=== PATIENT | female | born 1955 | race African-American/Black ===

== ENCOUNTER 2016-12-02 13:03 | Inpatient (IN) | payer MEDICARE, MEDICAID ==
[~2016-12-02] VITALS: Ht 170.2 cm; Wt 116.5 kg
[2016-12-02] MEDS ORDERED: RISP.5 PO (13:32)
[2016-12-02] MEDS ORDERED: QUET25TA PO (13:32)
[2016-12-02 14:07] LABS: BASOPHILS # (AUTO) 0.15 K/uL (0.00-0.20); BASOPHILS % (AUTO) 1.9 % (0.0-2.0); EOSINOPHILS # (AUTO) 0.69 K/uL (0.00-0.70); EOSINOPHILS % (AUTO) 8.69 % (1.0-6.0); HEMATOCRIT 41.9 % (36-46); HEMOGLOBIN 13.6 g/dL (12.0-16.0); LYMPHOCYTES # (AUTO) 3.1 K/uL (1.0-4.8); LYMPHOCYTES % (AUTO) 39.3 % (22.0-44.0); MEAN CORPUSCULAR HGB CONC 32.5 G/dL (31.0-37.0); MEAN CORPUSCULAR VOLUME 83 fL (80-100); MONOCYTES # (AUTO) 0.6 K/uL (0.1-1.0); MONOCYTES % (AUTO) 8.1 % (2.0-9.0); NEUTROPHILS # (AUTO) 3.3 K/uL (1.8-7.7); PLATELET COUNT (AUTO) 345 K/uL (150-450); RED BLOOD CELL COUNT(AUTO) 5.05 MIL/uL (4.00-5.20); RED CELL DISTRIBUTION WIDTH 15.6 % (11.5-14.5)
[2016-12-02 14:23] LABS: ANION GAP 8 mmol/L (8-16); CARBON DIOXIDE 29 mmol/L (22-29); CHLORIDE 104 mmol/L (98-107); CREATININE 0.91 mg/dL (0.60-1.30); GLOMERULAR FILTR. RATE CALC > 60 mL/min (>60); POTASSIUM 3.5 mmol/L (3.5-5.1); SODIUM SERUM 141 mmol/L (136-145); UREA NITROGEN, BLOOD 10 mg/dL (7-18)
[2016-12-02 14:29] LABS: ALANINE AMINOTRANSFERASE 30 U/L (12-78); ALBUMIN 3.3 g/dL (3.4-5.0); ASPARTATE AMINOTRANSFERASE 19 U/L (15-37); BILIRUBIN,TOTAL 0.4 mg/dL (0.1-1.0); TOTAL PROTEIN, SERUM 7.7 g/dL (6.4-8.2)
[2016-12-02] MEDS ORDERED: HALOPERIDOL 5 MG TABLET PO ONE (15:15)
[2016-12-02] MEDS ORDERED: HALOPERIDOL 5 MG TABLET PO PRN (18:00)
[2016-12-02 19:52] VITALS: BP 147/82
[2016-12-02] MEDS ORDERED: INFLUENZA VIRUS VACCINE QVS 2016-17 (3YR+)/PF 60 MCG/0.5 ML SYRINGE IM ONE (20:15)
[2016-12-03 04:51] VITALS: BP 148/87
[2016-12-03 08:00] VITALS: BP 151/91
[2016-12-03 16:30] VITALS: BP 134/83
[2016-12-03] MEDS ORDERED: ACETAMINOPHEN 325 MG TABLET PO PRN (23:15)
[2016-12-04 07:08] LABS: HEMOGLOBIN A1C 6.2 % (4.5-6.2)
[2016-12-04 07:29] LABS: CHOL/HDL RATIO 4.5 (3.9-5.7); THYROID STIMULATING HORMONE 0.94 uIU/mL (0.36-3.74)
[2016-12-04 08:00] VITALS: BP 140/71
[2016-12-04 16:27] VITALS: BP 159/85
[2016-12-04] MEDS: IBUPROFEN 400 MG TABLET PO PRN (16:27)
[2016-12-04] MEDS: LORazepam 2 MG TABLET PO PRN (18:36)
[2016-12-04] MEDS: ZOLPIDEM TARTRATE 10 MG TABLET PO PRN (20:37)
[2016-12-05 02:00] VITALS: BP 140/95
[2016-12-05 08:00] VITALS: BP 119/82
[2016-12-05] MEDS ORDERED: BENZOCAINE/MENTHOL LOZENGE [8 LOZENGES/PACKET] PO PRN (10:30)
[2016-12-05] MEDS ORDERED: GuaiFENesin/D-METHORPHAN [SUGAR-FREE] 200-20MG/10 ML SYRUP UDCUP PO SCH (12:00)
[2016-12-05 16:39] VITALS: BP 134/84
[2016-12-05] MEDS: GuaiFENesin/D-METHORPHAN [SUGAR-FREE] 200-20MG/10 ML SYRUP UDCUP PO PRN (20:28)
[2016-12-06 01:00] VITALS: BP 145/78
[2016-12-06] MEDS: GuaiFENesin/D-METHORPHAN [SUGAR-FREE] 200-20MG/10 ML SYRUP UDCUP PO PRN ×3 (03:00→19:17)
[2016-12-06 08:04] VITALS: BP 146/78
[2016-12-06] MEDS: CITALOPRAM HYDROBROMIDE 20 MG TABLET PO SCH (08:26)
[2016-12-06 16:40] VITALS: BP 113/73
[2016-12-07] MEDS: GuaiFENesin/D-METHORPHAN [SUGAR-FREE] 200-20MG/10 ML SYRUP UDCUP PO PRN ×2 (04:39→10:53)
[2016-12-07 08:05] VITALS: BP 127/79
[2016-12-07] MEDS: CITALOPRAM HYDROBROMIDE 20 MG TABLET PO SCH (09:50)
[2016-12-07 17:05] VITALS: BP 131/78
[2016-12-07] MEDS: ZOLPIDEM TARTRATE 10 MG TABLET PO PRN (21:24)
[2016-12-08] MEDS: GuaiFENesin/D-METHORPHAN [SUGAR-FREE] 200-20MG/10 ML SYRUP UDCUP PO PRN ×2 (05:50→22:13)
[2016-12-08 05:53] VITALS: BP 144/75
[2016-12-08 08:00] VITALS: BP 133/80
[2016-12-08] MEDS: CITALOPRAM HYDROBROMIDE 20 MG TABLET PO SCH (08:07)
[2016-12-08 17:52] VITALS: BP 130/90
[2016-12-08] MEDS: ZOLPIDEM TARTRATE 10 MG TABLET PO PRN (22:10)
[2016-12-09 02:31] VITALS: BP 143/26
[2016-12-09] MEDS: CITALOPRAM HYDROBROMIDE 20 MG TABLET PO SCH (08:02)
[2016-12-09] MEDS: GuaiFENesin/D-METHORPHAN [SUGAR-FREE] 200-20MG/10 ML SYRUP UDCUP PO PRN (09:03)
[2016-12-09 09:35] VITALS: BP 131/63
[2016-12-09] MEDS ORDERED: ALBUTEROL SULFATE HFA 90 MCG/PUFF 8 GM INHALER IH PRN (13:30)
[2016-12-09 19:59] VITALS: BP 131/77
[2016-12-09] MEDS: LORazepam 2 MG TABLET PO PRN (20:07)
[2016-12-10 01:42] VITALS: BP 141/71
[2016-12-10] MEDS: IBUPROFEN 400 MG TABLET PO PRN (04:24)
[2016-12-10] MEDS: CITALOPRAM HYDROBROMIDE 20 MG TABLET PO SCH (09:21)
[2016-12-10 09:32] VITALS: BP 144/70
[2016-12-10] MEDS ORDERED: CITA20TA9 PO (12:09)
[2016-12-10 16:15] VITALS: BP 150/90
[2016-12-10 16:25] VITALS: BP 149/87
== END 2016-12-10 17:05 | disposition home or self-care (01) | DRG 885 ==
LOC: EMS 13:06 → 3EX 18:20
PROVIDERS: ADMIT Psychiatry & Neurology Psychiatry; ATTEND Psychiatry & Neurology Psychiatry
DX: F33.2 Major depressive disorder, recurrent severe without psychotic features (principal); R45.851 Suicidal ideations; F15.90 Other stimulant use, unspecified, uncomplicated; F17.210 Nicotine dependence, cigarettes, uncomplicated; E83.51 Hypocalcemia; E78.5 Hyperlipidemia, unspecified; F20.9 Schizophrenia, unspecified; F22 Delusional disorders; R73.9 Hyperglycemia, unspecified; F19.10 Other psychoactive substance abuse, uncomplicated; Z28.21 Immunization not carried out because of patient refusal; Z59.0 Homelessness; Z88.0 Allergy status to penicillin
CPT/HCPCS: 83036; 84443; 99285; G0480; J3535

== ENCOUNTER 2016-12-21 18:30 | Inpatient (IN) | payer MEDICARE, MEDICAID ==
[~2016-12-21] VITALS: Ht 170.2 cm; Wt 115.7 kg
[~2016-12-21 18:30] MED LIST: CITA20TA9 PO
[2016-12-21 20:07] VITALS: BP 156/92
[2016-12-21 20:53] VITALS: BP 152/81
[2016-12-21] MEDS: LORazepam 2 MG TABLET PO PRN (21:00)
[2016-12-21 22:50] VITALS: BP 143/78
[2016-12-22 00:30] VITALS: BP 138/71
[2016-12-22 08:38] VITALS: BP 155/86
[2016-12-22 09:35] LABS: BASOPHILS % (AUTO) 0.6 % (0.0-2.0); HEMATOCRIT 39.4 % (36-46); HEMOGLOBIN 12.5 g/dL (12.0-16.0); LYMPHOCYTES # (AUTO) 3.9 K/uL (1.0-4.8); LYMPHOCYTES % (AUTO) 46.4 % (22.0-44.0); MEAN CORPUSCULAR HEMOGLOBIN 26.6 pg (26.0-34.0); MEAN CORPUSCULAR HGB CONC 31.7 G/dL (31.0-37.0); MEAN CORPUSCULAR VOLUME 84 fL (80-100); MONOCYTES # (AUTO) 0.5 K/uL (0.1-1.0); MONOCYTES % (AUTO) 6.3 % (2.0-9.0); NEUTROPHILS # (AUTO) 3.5 K/uL (1.8-7.7); NEUTROPHILS % (AUTO) 40.7 % (40.0-70.0); PLATELET COUNT (AUTO) 386 K/uL (150-450); RED CELL DISTRIBUTION WIDTH 15.9 % (11.5-14.5); WHITE BLOOD COUNT (AUTO) 8.5 K/uL (4.5-11.0)
[2016-12-22] MEDS: CITALOPRAM HYDROBROMIDE 20 MG TABLET PO SCH (09:36)
[2016-12-22] MEDS: LORazepam 2 MG TABLET PO PRN ×2 (09:36→16:59)
[2016-12-22 09:51] LABS: ALANINE AMINOTRANSFERASE 32 U/L (12-78); ANION GAP 9 mmol/L (8-16); ASPARTATE AMINOTRANSFERASE 27 U/L (15-37); BILIRUBIN,TOTAL 0.4 mg/dL (0.1-1.0); CALCIUM, TOTAL 8.9 mg/dL (8.8-10.5); CARBON DIOXIDE 27 mmol/L (22-29); CHLORIDE 106 mmol/L (98-107); CREATININE 0.68 mg/dL (0.60-1.30); GLOMERULAR FILTR. RATE CALC > 60 mL/min (>60); POTASSIUM 3.9 mmol/L (3.5-5.1); SODIUM SERUM 142 mmol/L (136-145); TOTAL PROTEIN, SERUM 7.4 g/dL (6.4-8.2); UREA NITROGEN, BLOOD 10 mg/dL (7-18)
[2016-12-22 09:59] LABS: HEMOGLOBIN A1C 6.3 % (4.5-6.2)
[2016-12-22 11:46] VITALS: BP 135/80
[2016-12-22] MEDS: IBUPROFEN 600 MG TABLET PO PRN (11:46)
[2016-12-22 12:17] LABS: GLUCOSE,POINT OF CARE 109 MG/DL (70-110)
[2016-12-22 16:02] VITALS: BP 135/82
[2016-12-22 20:48] LABS: GLUCOSE,POINT OF CARE 152 MG/DL (70-110)
[2016-12-23 02:55] VITALS: BP 139/80
[2016-12-23] MEDS: IBUPROFEN 600 MG TABLET PO PRN (02:56)
[2016-12-23 03:45] VITALS: BP 134/75
[2016-12-23 08:23] VITALS: BP 160/74
[2016-12-23] MEDS: LORazepam 2 MG TABLET PO PRN (08:37)
[2016-12-23] MEDS: CITALOPRAM HYDROBROMIDE 20 MG TABLET PO SCH (08:37)
[2016-12-23] MEDS: AmLODIPine BESYLATE 5 MG TABLET PO SCH (08:37)
[2016-12-23 09:37] LABS: GLUCOSE,POINT OF CARE 110 MG/DL (70-110)
[2016-12-23 10:05] VITALS: BP 153/71
[2016-12-23 16:11] VITALS: BP 143/86
[2016-12-23 21:17] LABS: GLUCOSE,POINT OF CARE 124 MG/DL (70-110)
[2016-12-24 00:40] VITALS: BP 141/79
[2016-12-24] MEDS: CITALOPRAM HYDROBROMIDE 20 MG TABLET PO SCH (08:10)
[2016-12-24] MEDS: LORazepam 2 MG TABLET PO PRN ×2 (08:10→17:10)
[2016-12-24] MEDS: AmLODIPine BESYLATE 5 MG TABLET PO SCH (08:10)
[2016-12-24 08:48] VITALS: BP 148/63
[2016-12-24] MEDS: HALOPERIDOL 5 MG TABLET PO PRN (09:18)
[2016-12-24 13:37] LABS: GLUCOSE,POINT OF CARE 105 MG/DL (70-110)
[2016-12-24] MEDS ORDERED: ONDANSETRON HCL 4 MG TABLET PO PRN (15:30)
[2016-12-24 16:00] VITALS: BP 137/69
[2016-12-24 21:02] LABS: GLUCOSE,POINT OF CARE 114 MG/DL (70-110)
[2016-12-25 00:54] VITALS: BP 138/77
[2016-12-25 08:02] VITALS: BP 145/87
[2016-12-25] MEDS: CITALOPRAM HYDROBROMIDE 20 MG TABLET PO SCH (08:13)
[2016-12-25] MEDS: AmLODIPine BESYLATE 5 MG TABLET PO SCH (08:13)
[2016-12-25] MEDS: RisperiDONE 1 MG TABLET PO SCH ×2 (08:13→16:12)
[2016-12-25 09:52] LABS: GLUCOSE,POINT OF CARE 131 MG/DL (70-110)
[2016-12-25] MEDS: NICOTINE 14 MG/24 HOUR PATCH TD SCH (12:52)
[2016-12-25 16:10] VITALS: BP 121/61
[2016-12-25 17:02] LABS: GLUCOSE,POINT OF CARE 85 MG/DL (70-110)
[2016-12-25 21:56] LABS: GLUCOSE,POINT OF CARE 101 MG/DL (70-110)
[2016-12-26 04:40] VITALS: BP 121/75
[2016-12-26] MEDS: IBUPROFEN 600 MG TABLET PO PRN (04:45)
[2016-12-26 08:12] VITALS: BP 142/65
[2016-12-26] MEDS: CITALOPRAM HYDROBROMIDE 20 MG TABLET PO SCH (08:22)
[2016-12-26] MEDS: AmLODIPine BESYLATE 5 MG TABLET PO SCH (08:22)
[2016-12-26] MEDS: RisperiDONE 1 MG TABLET PO SCH ×2 (08:22→16:29)
[2016-12-26] MEDS: NICOTINE 14 MG/24 HOUR PATCH TD SCH (08:23)
[2016-12-26] MEDS: LORazepam 2 MG TABLET PO PRN ×2 (08:27→17:18)
[2016-12-26 10:02] LABS: GLUCOSE,POINT OF CARE 114 MG/DL (70-110)
[2016-12-26 16:40] VITALS: BP 153/74
[2016-12-26 17:30] VITALS: BP 135/65
[2016-12-26] MEDS: ZOLPIDEM TARTRATE 10 MG TABLET PO PRN (21:04)
[2016-12-26 21:12] LABS: GLUCOSE,POINT OF CARE 91 MG/DL (70-110)
[2016-12-27 08:24] VITALS: BP 135/67
[2016-12-27] MEDS: CITALOPRAM HYDROBROMIDE 20 MG TABLET PO SCH (08:30)
[2016-12-27] MEDS: LORazepam 2 MG TABLET PO PRN (08:30)
[2016-12-27] MEDS: RisperiDONE 1 MG TABLET PO SCH ×2 (08:30→16:07)
[2016-12-27] MEDS: NICOTINE 14 MG/24 HOUR PATCH TD SCH (08:30)
[2016-12-27] MEDS: AmLODIPine BESYLATE 5 MG TABLET PO SCH (08:30)
[2016-12-27 11:02] LABS: GLUCOSE,POINT OF CARE 112 MG/DL (70-110)
[2016-12-27 16:02] VITALS: BP 132/78
[2016-12-27] MEDS: ACETAMINOPHEN 325 MG TABLET PO PRN (17:30)
[2016-12-28 05:41] VITALS: BP 129/75
[2016-12-28 08:19] VITALS: BP 125/67
[2016-12-28] MEDS: AmLODIPine BESYLATE 5 MG TABLET PO SCH (08:20)
[2016-12-28] MEDS: NICOTINE 14 MG/24 HOUR PATCH TD SCH (08:20)
[2016-12-28] MEDS: RisperiDONE 1 MG TABLET PO SCH ×2 (08:20→16:06)
[2016-12-28] MEDS: CITALOPRAM HYDROBROMIDE 20 MG TABLET PO SCH (08:20)
[2016-12-28 09:50] VITALS: BP 120/72
[2016-12-28] MEDS: ACETAMINOPHEN 325 MG TABLET PO PRN (09:50)
[2016-12-28 11:02] LABS: GLUCOSE,POINT OF CARE 85 MG/DL (70-110)
[2016-12-28 16:06] VITALS: BP 119/70
[2016-12-28] MEDS: LORazepam 2 MG TABLET PO PRN (16:09)
[2016-12-28] MEDS: IBUPROFEN 600 MG TABLET PO PRN (20:10)
[2016-12-28 20:11] VITALS: BP 128/75
[2016-12-28 20:22] LABS: GLUCOSE,POINT OF CARE 86 MG/DL (70-110)
[2016-12-29 08:05] VITALS: BP 116/73
[2016-12-29] MEDS: RisperiDONE 1 MG TABLET PO SCH ×2 (08:38→16:07)
[2016-12-29] MEDS: AmLODIPine BESYLATE 5 MG TABLET PO SCH (08:38)
[2016-12-29] MEDS: CITALOPRAM HYDROBROMIDE 20 MG TABLET PO SCH (08:39)
[2016-12-29] MEDS: LORazepam 2 MG TABLET PO PRN ×2 (08:39→16:08)
[2016-12-29] MEDS: NICOTINE 14 MG/24 HOUR PATCH TD SCH (08:39)
[2016-12-29 09:52] LABS: GLUCOSE,POINT OF CARE 111 MG/DL (70-110)
[2016-12-29 16:01] VITALS: BP 143/69
[2016-12-29 16:05] VITALS: BP 143/69
[2016-12-29] MEDS: IBUPROFEN 600 MG TABLET PO PRN (16:08)
[2016-12-29 20:42] LABS: GLUCOSE,POINT OF CARE 117 MG/DL (70-110)
[2016-12-30 00:59] VITALS: BP 137/78
[2016-12-30] MEDS: ZOLPIDEM TARTRATE 10 MG TABLET PO PRN (02:04)
[2016-12-30] MEDS: CITALOPRAM HYDROBROMIDE 20 MG TABLET PO SCH (08:11)
[2016-12-30] MEDS: AmLODIPine BESYLATE 5 MG TABLET PO SCH (08:12)
[2016-12-30] MEDS: RisperiDONE 1 MG TABLET PO SCH ×2 (08:12→16:07)
[2016-12-30] MEDS: NICOTINE 14 MG/24 HOUR PATCH TD SCH (08:12)
[2016-12-30] MEDS: LORazepam 2 MG TABLET PO PRN (08:17)
[2016-12-30 08:42] VITALS: BP 138/75
[2016-12-30 10:52] LABS: GLUCOSE,POINT OF CARE 75 MG/DL (70-110)
[2016-12-30 16:07] VITALS: BP 145/68
[2016-12-30] MEDS: IBUPROFEN 600 MG TABLET PO PRN (16:07)
[2016-12-31 08:14] VITALS: BP 125/67
[2016-12-31] MEDS: AmLODIPine BESYLATE 5 MG TABLET PO SCH (09:20)
[2016-12-31] MEDS: RisperiDONE 1 MG TABLET PO SCH ×2 (09:20→16:30)
[2016-12-31] MEDS: CITALOPRAM HYDROBROMIDE 20 MG TABLET PO SCH (09:20)
[2016-12-31] MEDS: NICOTINE 14 MG/24 HOUR PATCH TD SCH (09:21)
[2016-12-31] MEDS: IBUPROFEN 600 MG TABLET PO PRN (14:40)
[2016-12-31 16:00] VITALS: BP 136/72
[2016-12-31] MEDS: HALOPERIDOL 5 MG TABLET PO PRN (18:01)
[2016-12-31] MEDS: LORazepam 2 MG TABLET PO PRN (18:01)
[2016-12-31] MEDS: ZOLPIDEM TARTRATE 10 MG TABLET PO PRN (20:03)
[2016-12-31 23:12] LABS: GLUCOSE,POINT OF CARE 111 MG/DL (70-110)
[2017-01-01 05:27] VITALS: BP 133/84
[2017-01-01 08:37] VITALS: BP 126/71
[2017-01-01] MEDS: AmLODIPine BESYLATE 5 MG TABLET PO SCH (09:15)
[2017-01-01] MEDS: CITALOPRAM HYDROBROMIDE 20 MG TABLET PO SCH (09:15)
[2017-01-01] MEDS: NICOTINE 14 MG/24 HOUR PATCH TD SCH (09:15)
[2017-01-01] MEDS: RisperiDONE 1 MG TABLET PO SCH ×2 (09:16→16:33)
[2017-01-01] MEDS: LORazepam 2 MG TABLET PO PRN (09:17)
[2017-01-01] MEDS: HALOPERIDOL 5 MG TABLET PO PRN (09:17)
[2017-01-01 10:07] LABS: GLUCOSE,POINT OF CARE 123 MG/DL (70-110)
[2017-01-01 10:45] VITALS: BP 118/75
[2017-01-01] MEDS: IBUPROFEN 600 MG TABLET PO PRN (10:47)
[2017-01-01 16:14] VITALS: BP 130/76
[2017-01-01] MEDS: ZOLPIDEM TARTRATE 10 MG TABLET PO PRN (21:20)
[2017-01-02] MEDS: LORazepam 2 MG TABLET PO PRN ×3 (02:08→17:18)
[2017-01-02 07:03] VITALS: BP 123/87
[2017-01-02] MEDS: CITALOPRAM HYDROBROMIDE 20 MG TABLET PO SCH (08:10)
[2017-01-02] MEDS: RisperiDONE 1 MG TABLET PO SCH ×2 (08:11→17:14)
[2017-01-02] MEDS: NICOTINE 14 MG/24 HOUR PATCH TD SCH (08:11)
[2017-01-02] MEDS: AmLODIPine BESYLATE 5 MG TABLET PO SCH (08:11)
[2017-01-02 08:22] VITALS: BP 123/65
[2017-01-02] MEDS: HALOPERIDOL 5 MG TABLET PO PRN (09:54)
[2017-01-02 10:37] LABS: GLUCOSE,POINT OF CARE 92 MG/DL (70-110)
[2017-01-02 14:35] VITALS: BP 132/77
[2017-01-02] MEDS: IBUPROFEN 600 MG TABLET PO PRN (14:35)
[2017-01-02 16:10] VITALS: BP 142/73
[2017-01-03] MEDS: ZOLPIDEM TARTRATE 10 MG TABLET PO PRN (00:22)
[2017-01-03 00:30] VITALS: BP 124/70
[2017-01-03] MEDS: AmLODIPine BESYLATE 5 MG TABLET PO SCH (08:15)
[2017-01-03] MEDS: NICOTINE 14 MG/24 HOUR PATCH TD SCH (08:15)
[2017-01-03] MEDS: CITALOPRAM HYDROBROMIDE 20 MG TABLET PO SCH (08:15)
[2017-01-03] MEDS: RisperiDONE 1 MG TABLET PO SCH ×2 (08:15→16:15)
[2017-01-03] MEDS: LORazepam 2 MG TABLET PO PRN ×2 (08:26→16:15)
[2017-01-03 08:36] VITALS: BP 127/61
[2017-01-03 11:07] LABS: GLUCOSE,POINT OF CARE 98 MG/DL (70-110)
[2017-01-03] MEDS: LOPERAMIDE HCL 2 MG CAPSULE PO PRN (11:43)
[2017-01-03 13:27] VITALS: BP 131/78
[2017-01-03] MEDS: IBUPROFEN 600 MG TABLET PO PRN ×2 (13:27→20:15)
[2017-01-03 16:23] VITALS: BP 108/53
[2017-01-03 20:15] VITALS: BP 128/74
[2017-01-03 20:21] LABS: GLUCOSE,POINT OF CARE 153 MG/DL (70-110)
[2017-01-04 06:56] VITALS: BP 106/69
[2017-01-04 08:28] VITALS: BP 126/66
[2017-01-04] MEDS: AmLODIPine BESYLATE 5 MG TABLET PO SCH (09:11)
[2017-01-04] MEDS: CITALOPRAM HYDROBROMIDE 20 MG TABLET PO SCH (09:11)
[2017-01-04] MEDS: RisperiDONE 1 MG TABLET PO SCH ×2 (09:11→16:06)
[2017-01-04] MEDS: NICOTINE 14 MG/24 HOUR PATCH TD SCH (10:12)
[2017-01-04] MEDS ORDERED: NICOTINE 7 MG/24 HOUR PATCH TD SCH (12:00)
[2017-01-04 16:06] VITALS: BP 130/75
[2017-01-04] MEDS: IBUPROFEN 600 MG TABLET PO PRN (16:06)
[2017-01-04] MEDS: LORazepam 2 MG TABLET PO PRN (16:06)
[2017-01-04 16:07] VITALS: BP 133/76
[2017-01-04 20:37] LABS: GLUCOSE,POINT OF CARE 103 MG/DL (70-110)
[2017-01-04] MEDS: ZOLPIDEM TARTRATE 10 MG TABLET PO PRN (21:01)
[2017-01-05] MEDS: LORazepam 2 MG TABLET PO PRN ×3 (00:16→16:17)
[2017-01-05] MEDS: LOPERAMIDE HCL 2 MG CAPSULE PO PRN (02:23)
[2017-01-05 07:24] VITALS: BP 136/84
[2017-01-05 08:25] VITALS: BP 134/71
[2017-01-05] MEDS: RisperiDONE 1 MG TABLET PO SCH ×2 (08:38→16:17)
[2017-01-05] MEDS: AmLODIPine BESYLATE 5 MG TABLET PO SCH (08:39)
[2017-01-05] MEDS: NICOTINE 14 MG/24 HOUR PATCH TD SCH (08:39)
[2017-01-05] MEDS: CITALOPRAM HYDROBROMIDE 20 MG TABLET PO SCH (08:39)
[2017-01-05 09:51] VITALS: BP 128/80
[2017-01-05] MEDS: IBUPROFEN 600 MG TABLET PO PRN (09:51)
[2017-01-05] MEDS: HALOPERIDOL 5 MG TABLET PO PRN (10:11)
[2017-01-05 10:32] LABS: GLUCOSE,POINT OF CARE 150 MG/DL (70-110)
[2017-01-05 16:30] VITALS: BP 130/69
[2017-01-05 20:42] LABS: GLUCOSE,POINT OF CARE 124 MG/DL (70-110)
[2017-01-05] MEDS: ZOLPIDEM TARTRATE 10 MG TABLET PO PRN (21:04)
[2017-01-06 01:55] VITALS: BP 121/76
[2017-01-06] MEDS: HALOPERIDOL 5 MG TABLET PO PRN (01:59)
[2017-01-06] MEDS: LORazepam 2 MG TABLET PO PRN ×3 (01:59→18:44)
[2017-01-06] MEDS: NICOTINE 14 MG/24 HOUR PATCH TD SCH (08:36)
[2017-01-06] MEDS: RisperiDONE 1 MG TABLET PO SCH ×2 (08:36→16:13)
[2017-01-06] MEDS: AmLODIPine BESYLATE 5 MG TABLET PO SCH (08:36)
[2017-01-06] MEDS: CITALOPRAM HYDROBROMIDE 20 MG TABLET PO SCH (08:36)
[2017-01-06 08:41] VITALS: BP 137/66
[2017-01-06 10:47] VITALS: BP 132/74
[2017-01-06] MEDS: IBUPROFEN 600 MG TABLET PO PRN (10:47)
[2017-01-06 11:42] LABS: GLUCOSE,POINT OF CARE 87 MG/DL (70-110)
[2017-01-06 16:16] VITALS: BP 122/69
[2017-01-06 20:37] LABS: GLUCOSE,POINT OF CARE 93 MG/DL (70-110)
[2017-01-06] MEDS: ZOLPIDEM TARTRATE 10 MG TABLET PO PRN (21:03)
[2017-01-07 01:32] VITALS: BP 123/67
[2017-01-07 08:34] VITALS: BP 131/63
[2017-01-07] MEDS: CITALOPRAM HYDROBROMIDE 20 MG TABLET PO SCH (08:46)
[2017-01-07] MEDS: AmLODIPine BESYLATE 5 MG TABLET PO SCH (08:46)
[2017-01-07] MEDS: RisperiDONE 1 MG TABLET PO SCH ×2 (08:46→16:15)
[2017-01-07] MEDS: NICOTINE 14 MG/24 HOUR PATCH TD SCH (08:47)
[2017-01-07] MEDS: LORazepam 2 MG TABLET PO PRN ×2 (10:52→16:15)
[2017-01-07 11:08] LABS: GLUCOSE,POINT OF CARE 138 MG/DL (70-110)
[2017-01-07 14:48] VITALS: BP 131/75
[2017-01-07] MEDS: IBUPROFEN 600 MG TABLET PO PRN (14:49)
[2017-01-07 17:13] VITALS: BP 126/78
[2017-01-07 20:27] LABS: GLUCOSE,POINT OF CARE 106 MG/DL (70-110)
[2017-01-07] MEDS: ZOLPIDEM TARTRATE 10 MG TABLET PO PRN (21:17)
[2017-01-08 03:59] VITALS: BP 130/76
[2017-01-08] MEDS: LOPERAMIDE HCL 2 MG CAPSULE PO PRN (06:00)
[2017-01-08] MEDS: LORazepam 2 MG TABLET PO PRN ×2 (08:13→16:47)
[2017-01-08] MEDS: CITALOPRAM HYDROBROMIDE 20 MG TABLET PO SCH (08:13)
[2017-01-08] MEDS: RisperiDONE 1 MG TABLET PO SCH ×2 (08:13→16:47)
[2017-01-08] MEDS: AmLODIPine BESYLATE 5 MG TABLET PO SCH (08:13)
[2017-01-08 08:21] VITALS: BP 131/64
[2017-01-08] MEDS: NICOTINE 14 MG/24 HOUR PATCH TD SCH (08:31)
[2017-01-08 14:43] VITALS: BP 126/72
[2017-01-08] MEDS: IBUPROFEN 600 MG TABLET PO PRN (14:45)
[2017-01-08 16:37] VITALS: BP 114/76
[2017-01-08 20:52] LABS: GLUCOSE,POINT OF CARE 107 MG/DL (70-110)
[2017-01-08] MEDS: ZOLPIDEM TARTRATE 10 MG TABLET PO PRN (21:24)
[2017-01-09 03:42] VITALS: BP 137/77
[2017-01-09] MEDS: LOPERAMIDE HCL 2 MG CAPSULE PO PRN (04:01)
[2017-01-09] MEDS: LORazepam 2 MG TABLET PO PRN ×2 (07:16→11:37)
[2017-01-09 08:08] VITALS: BP 135/76
[2017-01-09] MEDS: AmLODIPine BESYLATE 5 MG TABLET PO SCH (08:37)
[2017-01-09] MEDS: CITALOPRAM HYDROBROMIDE 20 MG TABLET PO SCH (08:37)
[2017-01-09] MEDS: NICOTINE 14 MG/24 HOUR PATCH TD SCH (08:37)
[2017-01-09] MEDS: RisperiDONE 1 MG TABLET PO SCH (08:37)
[2017-01-09] MEDS ORDERED: AMLO-511 PO (09:22)
[2017-01-09] MEDS ORDERED: RISP1 PO (09:22)
[2017-01-09] MEDS: IBUPROFEN 600 MG TABLET PO PRN (11:38)
== END 2017-01-09 13:30 | disposition home or self-care (01) | DRG 885 ==
LOC: B3A 20:13 → EDSTATUS 20:17 → B3A 12-30 20:16
PROVIDERS: ADMIT Psychiatry & Neurology Psychiatry; ATTEND Psychiatry & Neurology Psychiatry
DX: F25.9 Schizoaffective disorder, unspecified (principal); R45.851 Suicidal ideations; F17.210 Nicotine dependence, cigarettes, uncomplicated; Z59.0 Homelessness; E83.51 Hypocalcemia; F19.10 Other psychoactive substance abuse, uncomplicated; Z88.0 Allergy status to penicillin
CPT/HCPCS: 82962; 83036; 87081; Q0162

== ENCOUNTER 2017-01-13 11:24 | Inpatient (IN) | payer MEDICARE, MEDICAID ==
[~2017-01-13] VITALS: Ht 170.2 cm; Wt 117.4 kg
[~2017-01-13 11:24] MED LIST changes: +AMLO-511 PO; +RISP1 PO
[2017-01-13 12:05] LABS: BASOPHILS % (AUTO) 1.4 % (0.0-2.0); EOSINOPHILS % (AUTO) 4.6 % (1.0-6.0); HEMATOCRIT 43.4 % (36-46); HEMOGLOBIN 13.6 g/dL (12.0-16.0); LYMPHOCYTES # (AUTO) 6.9 K/uL (1.0-4.8); LYMPHOCYTES % (AUTO) 46.6 % (22.0-44.0); MEAN CORPUSCULAR HEMOGLOBIN 26.2 pg (26.0-34.0); MEAN CORPUSCULAR HGB CONC 31.3 G/dL (31.0-37.0); MEAN CORPUSCULAR VOLUME 83 fL (80-100); MONOCYTES # (AUTO) 0.7 K/uL (0.1-1.0); MONOCYTES % (AUTO) 5.1 % (2.0-9.0); NEUTROPHILS # (AUTO) 6.2 K/uL (1.8-7.7); NEUTROPHILS % (AUTO) 42.3 % (40.0-70.0); PLATELET COUNT (AUTO) 205 K/uL (150-450); RED BLOOD CELL COUNT(AUTO) 5.21 MIL/uL (4.00-5.20); RED CELL DISTRIBUTION WIDTH 16.2 % (11.5-14.5)
[2017-01-13 12:10] LABS: WHITE BLOOD COUNT (AUTO) 16.9 K/uL (4.5-11.0)
[2017-01-13 12:15] LABS: ANION GAP 10 mmol/L (8-16); CALCIUM, TOTAL 9.2 mg/dL (8.8-10.5); CARBON DIOXIDE 27 mmol/L (22-29); CHLORIDE 103 mmol/L (98-107); CREATININE 0.73 mg/dL (0.60-1.30); GLOMERULAR FILTR. RATE CALC > 60 mL/min (>60); POTASSIUM 3.8 mmol/L (3.5-5.1); SODIUM SERUM 140 mmol/L (136-145); UREA NITROGEN, BLOOD 8 mg/dL (7-18)
[2017-01-13 12:21] LABS: ALANINE AMINOTRANSFERASE 37 U/L (12-78); ALBUMIN 3.6 g/dL (3.4-5.0); ASPARTATE AMINOTRANSFERASE 36 U/L (15-37); BILIRUBIN,TOTAL 0.4 mg/dL (0.1-1.0); TOTAL PROTEIN, SERUM 8.8 g/dL (6.4-8.2)
[2017-01-13 16:42] VITALS: BP 126/76
[2017-01-13] MEDS: ZOLPIDEM TARTRATE 10 MG TABLET PO PRN (21:29)
[2017-01-14 08:55] VITALS: BP 146/68
[2017-01-14] MEDS: RisperiDONE 1 MG TABLET PO SCH (16:19)
[2017-01-14] MEDS: LORazepam 2 MG TABLET PO PRN (16:19)
[2017-01-14] MEDS: HALOPERIDOL 5 MG TABLET PO PRN (16:19)
[2017-01-14 16:26] VITALS: BP 148/69
[2017-01-15 04:02] VITALS: BP 140/74
[2017-01-15 07:36] LABS: CHOL/HDL RATIO 4.7 (3.9-5.7)
[2017-01-15] MEDS: CITALOPRAM HYDROBROMIDE 20 MG TABLET PO SCH (08:14)
[2017-01-15] MEDS: RisperiDONE 1 MG TABLET PO SCH ×2 (08:14→16:14)
[2017-01-15 08:36] VITALS: BP 123/77
[2017-01-15 17:00] VITALS: BP 146/83
[2017-01-16 08:30] VITALS: BP 138/76
[2017-01-16] MEDS: CITALOPRAM HYDROBROMIDE 20 MG TABLET PO SCH (09:19)
[2017-01-16] MEDS: RisperiDONE 1 MG TABLET PO SCH ×2 (09:19→16:22)
[2017-01-16 16:43] VITALS: BP 139/79
[2017-01-17 06:38] LABS: BASOPHILS # (AUTO) 0.06 K/uL (0.00-0.20); BASOPHILS % (AUTO) 0.9 % (0.0-2.0); EOSINOPHILS # (AUTO) 0.75 K/uL (0.00-0.70); EOSINOPHILS % (AUTO) 9.85 % (1.0-6.0); HEMATOCRIT 38.4 % (36-46); HEMOGLOBIN 12.2 g/dL (12.0-16.0); LYMPHOCYTES # (AUTO) 2.9 K/uL (1.0-4.8); LYMPHOCYTES % (AUTO) 37.9 % (22.0-44.0); MEAN CORPUSCULAR HEMOGLOBIN 26.9 pg (26.0-34.0); MEAN CORPUSCULAR HGB CONC 31.7 G/dL (31.0-37.0); MEAN CORPUSCULAR VOLUME 85 fL (80-100); MONOCYTES # (AUTO) 0.7 K/uL (0.1-1.0); MONOCYTES % (AUTO) 8.6 % (2.0-9.0); NEUTROPHILS # (AUTO) 3.3 K/uL (1.8-7.7); NEUTROPHILS % (AUTO) 42.8 % (40.0-70.0); PLATELET COUNT (AUTO) 351 K/uL (150-450); RED BLOOD CELL COUNT(AUTO) 4.54 MIL/uL (4.00-5.20); RED CELL DISTRIBUTION WIDTH 15.9 % (11.5-14.5); WHITE BLOOD COUNT (AUTO) 7.6 K/uL (4.5-11.0)
[2017-01-17 08:30] VITALS: BP 130/79
[2017-01-17] MEDS: RisperiDONE 1 MG TABLET PO SCH ×2 (09:29→17:00)
[2017-01-17] MEDS: CITALOPRAM HYDROBROMIDE 20 MG TABLET PO SCH (09:29)
[2017-01-17 18:18] VITALS: BP 141/105
[2017-01-18 02:00] VITALS: BP 152/85
[2017-01-18] MEDS: RisperiDONE 1 MG TABLET PO SCH ×2 (08:11→15:57)
[2017-01-18] MEDS: CITALOPRAM HYDROBROMIDE 20 MG TABLET PO SCH (08:11)
[2017-01-18 10:49] VITALS: BP 129/75
[2017-01-18] MEDS: LORazepam 2 MG TABLET PO PRN (16:00)
[2017-01-18 16:30] VITALS: BP 144/74
[2017-01-19 06:54] VITALS: BP 140/86
[2017-01-19] MEDS: GuaiFENesin/D-METHORPHAN [SUGAR-FREE] 200-20MG/10 ML SYRUP UDCUP PO PRN ×2 (07:59→21:48)
[2017-01-19] MEDS: CITALOPRAM HYDROBROMIDE 20 MG TABLET PO SCH (07:59)
[2017-01-19] MEDS: RisperiDONE 1 MG TABLET PO SCH ×2 (07:59→16:48)
[2017-01-19 10:44] VITALS: BP 138/83
[2017-01-19 10:54] VITALS: BP 145/86
[2017-01-19] MEDS: ACETAMINOPHEN 325 MG TABLET PO PRN (10:54)
[2017-01-19] MEDS: BENZOCAINE/MENTHOL LOZENGE [8 LOZENGES/PACKET] PO PRN (11:47)
[2017-01-19 13:40] VITALS: BP 142/86
[2017-01-19] MEDS: IBUPROFEN 400 MG TABLET PO PRN (13:40)
[2017-01-19 17:14] VITALS: BP 127/72
[2017-01-20 00:44] VITALS: BP 143/99
[2017-01-20] MEDS: IBUPROFEN 400 MG TABLET PO PRN ×2 (00:52→13:23)
[2017-01-20] MEDS: ZOLPIDEM TARTRATE 10 MG TABLET PO PRN (01:06)
[2017-01-20] MEDS: CITALOPRAM HYDROBROMIDE 20 MG TABLET PO SCH (09:00)
[2017-01-20] MEDS: RisperiDONE 1 MG TABLET PO SCH ×2 (09:00→16:18)
[2017-01-20] MEDS: LORazepam 2 MG TABLET PO PRN (09:01)
[2017-01-20] MEDS: HALOPERIDOL 5 MG TABLET PO PRN (09:01)
[2017-01-20 09:10] VITALS: BP 142/96
[2017-01-20 13:23] VITALS: BP 135/95
[2017-01-20 14:23] VITALS: BP 140/92
[2017-01-20 17:00] VITALS: BP 150/9
[2017-01-21] MEDS: IBUPROFEN 400 MG TABLET PO PRN ×2 (01:50→08:02)
[2017-01-21] MEDS: GuaiFENesin/D-METHORPHAN [SUGAR-FREE] 200-20MG/10 ML SYRUP UDCUP PO PRN (01:50)
[2017-01-21 01:53] VITALS: BP 148/89
[2017-01-21] MEDS: ACETAMINOPHEN 325 MG TABLET PO PRN (03:10)
[2017-01-21] MEDS: CLINDAMYCIN HCL 150 MG CAPSULE PO SCH ×4 (08:00→16:08)
[2017-01-21] MEDS: CITALOPRAM HYDROBROMIDE 20 MG TABLET PO SCH (08:01)
[2017-01-21] MEDS: RisperiDONE 1 MG TABLET PO SCH ×2 (08:01→16:08)
[2017-01-21] MEDS: BENZOCAINE 10% 7 GM GEL TP PRN (08:01)
[2017-01-21 08:02] VITALS: BP 145/73
[2017-01-21] MEDS: LORazepam 2 MG TABLET PO PRN ×2 (08:59→16:08)
[2017-01-21] MEDS: HALOPERIDOL 5 MG TABLET PO PRN (16:08)
[2017-01-21 16:34] VITALS: BP 144/82
[2017-01-21] MEDS: ZOLPIDEM TARTRATE 10 MG TABLET PO PRN (22:31)
[2017-01-22] MEDS: BENZOCAINE/MENTHOL LOZENGE [8 LOZENGES/PACKET] PO PRN (06:21)
[2017-01-22] MEDS: GuaiFENesin/D-METHORPHAN [SUGAR-FREE] 200-20MG/10 ML SYRUP UDCUP PO PRN (06:24)
[2017-01-22] MEDS: LORazepam 2 MG TABLET PO PRN ×2 (08:24→12:59)
[2017-01-22] MEDS: RisperiDONE 1 MG TABLET PO SCH ×2 (08:24→16:26)
[2017-01-22] MEDS: CITALOPRAM HYDROBROMIDE 20 MG TABLET PO SCH (08:24)
[2017-01-22] MEDS: CLINDAMYCIN HCL 150 MG CAPSULE PO SCH ×3 (08:25→16:26)
[2017-01-22 09:02] VITALS: BP 173/94
[2017-01-22] MEDS: IBUPROFEN 400 MG TABLET PO PRN (09:04)
[2017-01-22] MEDS: BENZOCAINE 10% 7 GM GEL TP PRN (09:05)
[2017-01-22] MEDS: ACETAMINOPHEN 325 MG TABLET PO PRN (13:00)
[2017-01-22 16:07] VITALS: BP 135/70
[2017-01-22] MEDS: ZOLPIDEM TARTRATE 10 MG TABLET PO PRN (23:01)
[2017-01-23 00:11] VITALS: BP 138/78
[2017-01-23] MEDS: IBUPROFEN 400 MG TABLET PO PRN (00:11)
[2017-01-23 04:52] VITALS: BP 135/89
[2017-01-23] MEDS: ACETAMINOPHEN 325 MG TABLET PO PRN (04:54)
[2017-01-23] MEDS: LORazepam 2 MG TABLET PO PRN ×2 (07:10→19:41)
[2017-01-23] MEDS: BENZOCAINE 10% 7 GM GEL TP PRN (07:11)
[2017-01-23] MEDS: CLINDAMYCIN HCL 150 MG CAPSULE PO SCH ×3 (08:13→16:16)
[2017-01-23] MEDS: RisperiDONE 1 MG TABLET PO SCH ×2 (08:13→16:17)
[2017-01-23] MEDS: CITALOPRAM HYDROBROMIDE 20 MG TABLET PO SCH (08:13)
[2017-01-23 08:58] VITALS: BP 143/72
[2017-01-23] MEDS: BENZOCAINE/MENTHOL LOZENGE [8 LOZENGES/PACKET] PO PRN (10:30)
[2017-01-23] MEDS: GuaiFENesin/D-METHORPHAN [SUGAR-FREE] 200-20MG/10 ML SYRUP UDCUP PO PRN (12:37)
[2017-01-23 16:00] VITALS: BP 144/72
[2017-01-23] MEDS: ZOLPIDEM TARTRATE 10 MG TABLET PO PRN (23:37)
[2017-01-24] MEDS: LORazepam 2 MG TABLET PO PRN (06:08)
[2017-01-24] MEDS: GuaiFENesin/D-METHORPHAN [SUGAR-FREE] 200-20MG/10 ML SYRUP UDCUP PO PRN ×3 (06:45→21:32)
[2017-01-24 06:54] VITALS: BP 139/73
[2017-01-24] MEDS: CLINDAMYCIN HCL 150 MG CAPSULE PO SCH ×3 (08:49→16:29)
[2017-01-24] MEDS: CITALOPRAM HYDROBROMIDE 20 MG TABLET PO SCH (08:49)
[2017-01-24] MEDS: RisperiDONE 1 MG TABLET PO SCH ×2 (08:49→16:29)
[2017-01-24 13:04] VITALS: BP 126/83
[2017-01-24 17:16] VITALS: BP 106/54
[2017-01-24] MEDS: BENZOCAINE/MENTHOL LOZENGE [8 LOZENGES/PACKET] PO PRN (20:08)
[2017-01-25] MEDS: GuaiFENesin/D-METHORPHAN [SUGAR-FREE] 200-20MG/10 ML SYRUP UDCUP PO PRN ×3 (04:49→21:02)
[2017-01-25] MEDS: RisperiDONE 1 MG TABLET PO SCH ×2 (08:06→16:15)
[2017-01-25] MEDS: CITALOPRAM HYDROBROMIDE 20 MG TABLET PO SCH (08:07)
[2017-01-25] MEDS: CLINDAMYCIN HCL 150 MG CAPSULE PO SCH ×3 (08:07→16:13)
[2017-01-25 09:00] VITALS: BP 149/69
[2017-01-25] MEDS: BENZOCAINE/MENTHOL LOZENGE [8 LOZENGES/PACKET] PO PRN (12:54)
[2017-01-25] MEDS: BENZOCAINE 10% 7 GM GEL TP PRN (16:13)
[2017-01-25 17:00] VITALS: BP 137/68
[2017-01-25] MEDS: LORazepam 2 MG TABLET PO PRN (18:36)
[2017-01-25] MEDS: IBUPROFEN 400 MG TABLET PO PRN (19:28)
[2017-01-26] MEDS: CITALOPRAM HYDROBROMIDE 20 MG TABLET PO SCH (08:29)
[2017-01-26] MEDS: RisperiDONE 1 MG TABLET PO SCH ×2 (08:29→16:44)
[2017-01-26] MEDS: CLINDAMYCIN HCL 150 MG CAPSULE PO SCH ×3 (08:29→16:45)
[2017-01-26 08:30] VITALS: BP 148/87
[2017-01-26] MEDS: IBUPROFEN 400 MG TABLET PO PRN (08:45)
[2017-01-26] MEDS: GuaiFENesin/D-METHORPHAN [SUGAR-FREE] 200-20MG/10 ML SYRUP UDCUP PO PRN (16:44)
[2017-01-26] MEDS: BENZOCAINE 10% 7 GM GEL TP PRN (16:48)
[2017-01-26 17:19] VITALS: BP 120/79
[2017-01-26] MEDS: BENZOCAINE/MENTHOL LOZENGE [8 LOZENGES/PACKET] PO PRN (21:10)
[2017-01-27 01:30] VITALS: BP 135/73
[2017-01-27] MEDS: GuaiFENesin/D-METHORPHAN [SUGAR-FREE] 200-20MG/10 ML SYRUP UDCUP PO PRN (05:08)
[2017-01-27 08:30] VITALS: BP 146/70
[2017-01-27] MEDS: CITALOPRAM HYDROBROMIDE 20 MG TABLET PO SCH (09:14)
[2017-01-27] MEDS: CLINDAMYCIN HCL 150 MG CAPSULE PO SCH ×3 (09:14→16:29)
[2017-01-27] MEDS: RisperiDONE 1 MG TABLET PO SCH ×2 (09:14→16:29)
[2017-01-27] MEDS: LORazepam 2 MG TABLET PO PRN (09:14)
[2017-01-27] MEDS: BENZOCAINE/MENTHOL LOZENGE [8 LOZENGES/PACKET] PO PRN (09:53)
[2017-01-27 16:42] VITALS: BP 144/73
[2017-01-28] MEDS: GuaiFENesin/D-METHORPHAN [SUGAR-FREE] 200-20MG/10 ML SYRUP UDCUP PO PRN ×2 (01:10→11:08)
[2017-01-28 01:23] VITALS: BP 135/71
[2017-01-28] MEDS: RisperiDONE 1 MG TABLET PO SCH ×2 (08:20→16:24)
[2017-01-28] MEDS: CITALOPRAM HYDROBROMIDE 20 MG TABLET PO SCH (08:21)
[2017-01-28] MEDS: CLINDAMYCIN HCL 150 MG CAPSULE PO SCH ×3 (08:21→16:24)
[2017-01-28] MEDS: NICOTINE 14 MG/24 HOUR PATCH TD SCH (08:22)
[2017-01-28] MEDS: IBUPROFEN 400 MG TABLET PO PRN ×2 (08:24→16:30)
[2017-01-28] MEDS: BENZOCAINE/MENTHOL LOZENGE [8 LOZENGES/PACKET] PO PRN ×2 (08:46→20:08)
[2017-01-28 09:23] VITALS: BP 134/72
[2017-01-28] MEDS: LORazepam 2 MG TABLET PO PRN (15:52)
[2017-01-28 16:31] VITALS: BP 135/75
[2017-01-29] MEDS: CITALOPRAM HYDROBROMIDE 20 MG TABLET PO SCH (08:30)
[2017-01-29] MEDS: CLINDAMYCIN HCL 150 MG CAPSULE PO SCH ×3 (08:30→16:05)
[2017-01-29] MEDS: RisperiDONE 1 MG TABLET PO SCH ×2 (08:31→16:05)
[2017-01-29] MEDS: NICOTINE 14 MG/24 HOUR PATCH TD SCH (08:40)
[2017-01-29 08:51] VITALS: BP 120/67
[2017-01-29] MEDS: IBUPROFEN 400 MG TABLET PO PRN (08:51)
[2017-01-29] MEDS ORDERED: CLIN-77 PO (11:52)
[2017-01-29] MEDS: GuaiFENesin/D-METHORPHAN [SUGAR-FREE] 200-20MG/10 ML SYRUP UDCUP PO PRN (13:24)
== END 2017-01-29 18:30 | disposition home or self-care (01) | DRG 885 ==
LOC: EMS 11:26 → 3EI 13:09 → 3EX 13:09
PROVIDERS: ADMIT Psychiatry & Neurology Psychiatry; ATTEND Psychiatry & Neurology Psychiatry
DX: F25.9 Schizoaffective disorder, unspecified (principal); F33.2 Major depressive disorder, recurrent severe without psychotic features; Z59.0 Homelessness; F15.10 Other stimulant abuse, uncomplicated; F17.210 Nicotine dependence, cigarettes, uncomplicated; E66.3 Overweight; D72.829 Elevated white blood cell count, unspecified; R73.9 Hyperglycemia, unspecified; Z88.0 Allergy status to penicillin; Z79.899 Other long term (current) drug therapy; Z71.6 Tobacco abuse counseling; Z71.51 Drug abuse counseling and surveillance of drug abuser
CPT/HCPCS: 87081; 99285; G0480

== ENCOUNTER 2017-02-08 21:08 | Inpatient (IN) | payer MEDICARE, MEDICAID ==
[~2017-02-08] VITALS: Ht 170.2 cm; Wt 110.8 kg
[~2017-02-08 21:08] MED LIST changes: -AMLO-511 PO; +CLIN-77 PO
[2017-02-08 21:41] LABS: BASOPHILS % (AUTO) 1.1 % (0.0-2.0); HEMATOCRIT 41.4 % (36-46); HEMOGLOBIN 12.8 g/dL (12.0-16.0); LYMPHOCYTES # (AUTO) 4.1 K/uL (1.0-4.8); LYMPHOCYTES % (AUTO) 47.4 % (22.0-44.0); MEAN CORPUSCULAR HGB CONC 30.9 G/dL (31.0-37.0); MEAN CORPUSCULAR VOLUME 84 fL (80-100); MONOCYTES # (AUTO) 0.4 K/uL (0.1-1.0); NEUTROPHILS # (AUTO) 3.7 K/uL (1.8-7.7); NEUTROPHILS % (AUTO) 42.5 % (40.0-70.0); PLATELET COUNT (AUTO) 396 K/uL (150-450); RED BLOOD CELL COUNT(AUTO) 4.93 MIL/uL (4.00-5.20); RED CELL DISTRIBUTION WIDTH 17.1 % (11.5-14.5); WHITE BLOOD COUNT (AUTO) 8.7 K/uL (4.5-11.0)
[2017-02-08 21:50] LABS: ANION GAP 6 mmol/L (8-16); CALCIUM, TOTAL 9.7 mg/dL (8.8-10.5); CARBON DIOXIDE 30 mmol/L (22-29); CHLORIDE 101 mmol/L (98-107); CREATININE 1.03 mg/dL (0.60-1.30); GLOMERULAR FILTR. RATE CALC > 60 mL/min (>60); POTASSIUM 3.4 mmol/L (3.5-5.1); SODIUM SERUM 137 mmol/L (136-145); UREA NITROGEN, BLOOD 15 mg/dL (7-18)
[2017-02-08 21:56] LABS: ALANINE AMINOTRANSFERASE 34 U/L (12-78); ALBUMIN 3.8 g/dL (3.4-5.0); ASPARTATE AMINOTRANSFERASE 22 U/L (15-37); BILIRUBIN,TOTAL 0.5 mg/dL (0.1-1.0); TOTAL PROTEIN, SERUM 7.9 g/dL (6.4-8.2)
[2017-02-08 22:28] LABS: RBC MORPHOLOGY COMMENT ABNORMAL RBC MORPH
[2017-02-09] MEDS ORDERED: POTASSIUM CHLORIDE 10% 40 MEQ/30 ML LIQUID UDCUP PO ONE (01:45)
[2017-02-09] MEDS ORDERED: ZOLPIDEM TARTRATE 10 MG TABLET PO PRN (03:15)
[2017-02-09 04:40] VITALS: BP 143/71
[2017-02-09 08:30] VITALS: BP 132/66
[2017-02-09] MEDS: RisperiDONE 1 MG TABLET PO SCH ×2 (10:05→16:23)
[2017-02-09] MEDS: CITALOPRAM HYDROBROMIDE 20 MG TABLET PO SCH (10:28)
[2017-02-09] MEDS: LORazepam 2 MG TABLET PO PRN ×2 (11:08→16:26)
[2017-02-09 16:26] VITALS: BP 117/73
[2017-02-09] MEDS ORDERED: ACETAMINOPHEN 325 MG TABLET PO PRN (19:45)
[2017-02-09] MEDS ORDERED: IBUPROFEN 400 MG TABLET PO PRN (19:45)
[2017-02-09] MEDS ORDERED: POTASSIUM CHLORIDE 20 MEQ ER TABLET PO ONE (21:00)
[2017-02-10] MEDS ORDERED: PNEUMOCOCCAL VACCINE POLYVALENT 0.5 ML VIAL [PPSV23] IM ONE (05:00)
[2017-02-10 06:38] VITALS: BP 126/82
[2017-02-10 07:06] LABS: HEMOGLOBIN A1C 6.2 % (4.5-6.2)
[2017-02-10 07:21] LABS: CHOL/HDL RATIO 3.8 (3.9-5.7); POTASSIUM 4.1 mmol/L (3.5-5.1); THYROID STIMULATING HORMONE 0.74 uIU/mL (0.36-3.74)
[2017-02-10] MEDS: CITALOPRAM HYDROBROMIDE 20 MG TABLET PO SCH (08:12)
[2017-02-10] MEDS: RisperiDONE 1 MG TABLET PO SCH ×2 (08:12→16:32)
[2017-02-10 08:20] VITALS: BP 142/77
[2017-02-10] MEDS: LORazepam 2 MG TABLET PO PRN ×2 (09:06→20:58)
[2017-02-10 16:30] VITALS: BP 113/88
[2017-02-11 08:00] VITALS: BP 106/66
[2017-02-11] MEDS: LORazepam 2 MG TABLET PO PRN ×2 (08:05→16:03)
[2017-02-11] MEDS: RisperiDONE 1 MG TABLET PO SCH ×2 (08:05→16:03)
[2017-02-11] MEDS: CITALOPRAM HYDROBROMIDE 20 MG TABLET PO SCH (08:05)
[2017-02-11] MEDS: HALOPERIDOL 5 MG TABLET PO PRN (08:05)
[2017-02-11 17:53] VITALS: BP 116/78
[2017-02-12 08:00] VITALS: BP 124/56
[2017-02-12] MEDS: CITALOPRAM HYDROBROMIDE 20 MG TABLET PO SCH (08:02)
[2017-02-12] MEDS: RisperiDONE 1 MG TABLET PO SCH ×2 (08:02→16:52)
[2017-02-12] MEDS: HALOPERIDOL 5 MG TABLET PO PRN (08:02)
[2017-02-12] MEDS: LORazepam 2 MG TABLET PO PRN (08:02)
[2017-02-12] MEDS ORDERED: LOPERAMIDE HCL 2 MG CAPSULE PO PRN (09:00)
[2017-02-12] MEDS: LACTOBACILLUS ACIDOPHILUS/BULGARICUS GRANULES PACKET PO SCH (16:52)
[2017-02-13 06:30] LABS: ANION GAP 8 mmol/L (8-16); CALCIUM, TOTAL 8.5 mg/dL (8.8-10.5); CARBON DIOXIDE 23 mmol/L (22-29); CHLORIDE 105 mmol/L (98-107); CREATININE 0.73 mg/dL (0.60-1.30); GLOMERULAR FILTR. RATE CALC > 60 mL/min (>60); POTASSIUM 3.6 mmol/L (3.5-5.1); SODIUM SERUM 136 mmol/L (136-145); UREA NITROGEN, BLOOD 13 mg/dL (7-18)
[2017-02-13 08:00] VITALS: BP 123/59
[2017-02-13] MEDS: CITALOPRAM HYDROBROMIDE 20 MG TABLET PO SCH (08:27)
[2017-02-13] MEDS: LACTOBACILLUS ACIDOPHILUS/BULGARICUS GRANULES PACKET PO SCH ×3 (08:27→16:04)
[2017-02-13] MEDS: RisperiDONE 1 MG TABLET PO SCH ×2 (08:27→16:04)
[2017-02-13 16:31] VITALS: BP 148/75
[2017-02-14 03:24] VITALS: BP 114/64
[2017-02-14 08:00] VITALS: BP 148/55
[2017-02-14] MEDS: RisperiDONE 1 MG TABLET PO SCH ×2 (08:09→16:03)
[2017-02-14] MEDS: CITALOPRAM HYDROBROMIDE 20 MG TABLET PO SCH (08:09)
[2017-02-14] MEDS: LACTOBACILLUS ACIDOPHILUS/BULGARICUS GRANULES PACKET PO SCH ×3 (08:09→16:04)
[2017-02-14] MEDS: AmLODIPine BESYLATE 2.5 MG TABLET PO SCH (08:09)
[2017-02-14] MEDS: LORazepam 2 MG TABLET PO PRN (16:02)
[2017-02-14 16:30] VITALS: BP 137/72
[2017-02-15] MEDS ORDERED: AMLO2.5T PO (07:58)
[2017-02-15] MEDS ORDERED: ACID1GRA3 PO (07:59)
[2017-02-15 08:01] VITALS: BP 140/86
[2017-02-15] MEDS: LACTOBACILLUS ACIDOPHILUS/BULGARICUS GRANULES PACKET PO SCH (08:05)
[2017-02-15] MEDS: RisperiDONE 1 MG TABLET PO SCH (08:05)
[2017-02-15] MEDS: AmLODIPine BESYLATE 2.5 MG TABLET PO SCH (08:05)
[2017-02-15] MEDS: LORazepam 2 MG TABLET PO PRN (08:05)
[2017-02-15] MEDS: CITALOPRAM HYDROBROMIDE 20 MG TABLET PO SCH (08:05)
== END 2017-02-15 12:15 | disposition home or self-care (01) | DRG 885 ==
LOC: EMS 21:14 → 3EX 02-09 03:00
PROVIDERS: ADMIT Psychiatry & Neurology Psychiatry; ATTEND Psychiatry & Neurology Psychiatry
PROC: 3E0234Z Introduction of Serum, Toxoid and Vaccine into Muscle, Percutaneous Approach (ICD-10-PCS; principal; 2017-02-15)
DX: F33.3 Major depressive disorder, recurrent, severe with psychotic symptoms (principal); R45.851 Suicidal ideations; F17.210 Nicotine dependence, cigarettes, uncomplicated; F15.10 Other stimulant abuse, uncomplicated; E87.6 Hypokalemia; E66.3 Overweight; E11.9 Type 2 diabetes mellitus without complications; E78.5 Hyperlipidemia, unspecified; R19.7 Diarrhea, unspecified; Z23 Encounter for immunization; Z88.0 Allergy status to penicillin; Z79.899 Other long term (current) drug therapy; Z86.73 Personal history of transient ischemic attack (TIA), and cerebral infarction without residual deficits; Z59.0 Homelessness; Z68.38 Body mass index [BMI] 38.0-38.9, adult
CPT/HCPCS: 83036; 84132; 84443; 87045; 87081; 90471; 99285; G0480

== ENCOUNTER 2017-02-22 14:31 | Inpatient (IN) | payer MEDICARE, MEDICAID ==
[~2017-02-22] VITALS: Ht 170.2 cm; Wt 111.7 kg
[~2017-02-22 14:31] MED LIST changes: +ACID1GRA3 PO; +AMLO2.5T PO; -CLIN-77 PO
[2017-02-22 14:58] VITALS: BP 153/77
[2017-02-22 17:17] VITALS: BP 138/69
[2017-02-23 06:10] VITALS: BP 139/76
[2017-02-23 08:21] LABS: APPEARANCE,URINE TURBID (CLEAR); GLUCOSE, URINE (UA) NEGATIVE (NEGATIVE); KETONES,URINE NEGATIVE (NEGATIVE); LEUKOCYTE ESTERASE ,URINE NEGATIVE (NEGATIVE); OCCULT BLOOD,URINE NEGATIVE (NEGATIVE); PROTEIN,URINE POS 1+ (NEGATIVE)
[2017-02-23 08:23] LABS: ADD UA MICROSCOPIC YES
[2017-02-23 08:37] LABS: AMORPHOUS SEDIMENT,UR Many /LPF (None Seen); CALCIUM OXALATE CRYSTALS,UR Few /LPF (None Seen); RBC,URINE 0-2 /HPF (0-2); SQUAMOUS EPITHELIAL CELL,UR Few /LPF (None Seen); WBC,URINE 0-2 /HPF (0-5)
[2017-02-23] MEDS: RisperiDONE 2 MG TABLET PO SCH ×2 (08:43→17:10)
[2017-02-23] MEDS: FLUoxetine HCL 20 MG CAPSULE PO SCH (08:43)
[2017-02-23 09:10] VITALS: BP 129/61
[2017-02-23 16:38] VITALS: BP 136/75
[2017-02-24 06:18] VITALS: BP 139/88
[2017-02-24] MEDS: RisperiDONE 2 MG TABLET PO SCH ×2 (08:39→16:58)
[2017-02-24] MEDS: CIPROFLOXACIN HCL 500 MG TABLET PO SCH ×2 (08:39→16:58)
[2017-02-24] MEDS: FLUoxetine HCL 20 MG CAPSULE PO SCH (08:39)
[2017-02-24 13:48] VITALS: BP 133/79
[2017-02-24 16:48] VITALS: BP 142/73
[2017-02-24] MEDS: LORazepam 2 MG TABLET PO PRN (18:08)
[2017-02-24] MEDS: ACETAMINOPHEN 325 MG TABLET PO PRN (18:09)
[2017-02-24 18:10] VITALS: BP 134/75
[2017-02-25 06:36] VITALS: BP 142/65
[2017-02-25 08:21] LABS: BASOPHILS % (AUTO) 0.7 % (0.0-2.0); EOSINOPHILS % (AUTO) 8.4 % (1.0-6.0); HEMATOCRIT 36.8 % (36-46); HEMOGLOBIN 12.3 g/dL (12.0-16.0); LYMPHOCYTES # (AUTO) 3.4 K/uL (1.0-4.8); LYMPHOCYTES % (AUTO) 49.6 % (22.0-44.0); MEAN CORPUSCULAR HEMOGLOBIN 27.7 pg (26.0-34.0); MEAN CORPUSCULAR HGB CONC 33.4 G/dL (31.0-37.0); MEAN CORPUSCULAR VOLUME 83 fL (80-100); MONOCYTES # (AUTO) 0.5 K/uL (0.1-1.0); MONOCYTES % (AUTO) 7.8 % (2.0-9.0); NEUTROPHILS # (AUTO) 2.3 K/uL (1.8-7.7); NEUTROPHILS % (AUTO) 33.5 % (40.0-70.0); PLATELET COUNT (AUTO) 328 K/uL (150-450); RED BLOOD CELL COUNT(AUTO) 4.45 MIL/uL (4.00-5.20); RED CELL DISTRIBUTION WIDTH 17.1 % (11.5-14.5); WHITE BLOOD COUNT (AUTO) 6.8 K/uL (4.5-11.0)
[2017-02-25 08:45] LABS: ALANINE AMINOTRANSFERASE 28 U/L (12-78); ALBUMIN 2.9 g/dL (3.4-5.0); ANION GAP 7 mmol/L (8-16); ASPARTATE AMINOTRANSFERASE 22 U/L (15-37); BILIRUBIN,TOTAL 0.2 mg/dL (0.1-1.0); CALCIUM, TOTAL 8.7 mg/dL (8.8-10.5); CARBON DIOXIDE 29 mmol/L (22-29); CHLORIDE 106 mmol/L (98-107); GLOMERULAR FILTR. RATE CALC > 60 mL/min (>60); POTASSIUM 3.6 mmol/L (3.5-5.1); SODIUM SERUM 142 mmol/L (136-145); TOTAL PROTEIN, SERUM 6.7 g/dL (6.4-8.2); UREA NITROGEN, BLOOD 10 mg/dL (7-18)
[2017-02-25] MEDS: FLUoxetine HCL 20 MG CAPSULE PO SCH (08:47)
[2017-02-25] MEDS: RisperiDONE 2 MG TABLET PO SCH ×2 (08:47→16:21)
[2017-02-25] MEDS: CIPROFLOXACIN HCL 500 MG TABLET PO SCH ×2 (08:47→16:22)
[2017-02-25 16:13] VITALS: BP 140/74
[2017-02-25 18:24] VITALS: BP 136/89
[2017-02-26 06:15] VITALS: BP 138/77
[2017-02-26 08:09] VITALS: BP 139/77
[2017-02-26] MEDS: CIPROFLOXACIN HCL 500 MG TABLET PO SCH ×2 (08:33→16:52)
[2017-02-26] MEDS: FLUoxetine HCL 20 MG CAPSULE PO SCH (08:33)
[2017-02-26] MEDS: RisperiDONE 2 MG TABLET PO SCH ×2 (08:33→16:52)
[2017-02-26 14:59] VITALS: BP 135/75
[2017-02-26] MEDS: ACETAMINOPHEN 325 MG TABLET PO PRN (15:00)
[2017-02-26 16:13] VITALS: BP 138/72
[2017-02-26] MEDS: LORazepam 2 MG TABLET PO PRN (16:52)
[2017-02-26] MEDS ORDERED: DICLOFENAC SODIUM 1% 100 GM GEL [4GM] TP PRN (22:15)
[2017-02-27 07:09] VITALS: BP 142/79
[2017-02-27 08:32] VITALS: BP 143/63
[2017-02-27] MEDS: CIPROFLOXACIN HCL 500 MG TABLET PO SCH ×2 (08:44→16:43)
[2017-02-27] MEDS: RisperiDONE 2 MG TABLET PO SCH ×2 (08:44→16:43)
[2017-02-27] MEDS: FLUoxetine HCL 20 MG CAPSULE PO SCH (08:44)
[2017-02-27 11:10] VITALS: BP 138/65
[2017-02-27] MEDS: IBUPROFEN 400 MG TABLET PO PRN (11:11)
[2017-02-27 12:11] VITALS: BP 135/70
[2017-02-27 16:35] VITALS: BP 125/68
[2017-02-27] MEDS: ACETAMINOPHEN 325 MG TABLET PO PRN (16:43)
[2017-02-27] MEDS: LORazepam 2 MG TABLET PO PRN (19:05)
[2017-02-27 23:45] VITALS: BP 124/65
[2017-02-28 06:43] VITALS: BP 129/74
[2017-02-28] MEDS: CIPROFLOXACIN HCL 500 MG TABLET PO SCH ×2 (08:21→16:26)
[2017-02-28] MEDS: IBUPROFEN 400 MG TABLET PO PRN (08:21)
[2017-02-28] MEDS: RisperiDONE 2 MG TABLET PO SCH ×2 (08:21→16:26)
[2017-02-28] MEDS: FLUoxetine HCL 20 MG CAPSULE PO SCH (08:21)
[2017-02-28 08:30] VITALS: BP 127/69
[2017-02-28 09:21] VITALS: BP 125/70
[2017-02-28 16:11] VITALS: BP 132/81
[2017-02-28] MEDS: ACETAMINOPHEN 325 MG TABLET PO PRN (16:27)
[2017-02-28] MEDS: LORazepam 2 MG TABLET PO PRN (16:29)
[2017-02-28] MEDS: ZOLPIDEM TARTRATE 10 MG TABLET PO PRN (20:32)
[2017-03-01 00:09] VITALS: BP 123/74
[2017-03-01] MEDS: LORazepam 2 MG TABLET PO PRN (05:05)
[2017-03-01 08:42] VITALS: BP 164/79
[2017-03-01] MEDS: FLUoxetine HCL 20 MG CAPSULE PO SCH (08:54)
[2017-03-01] MEDS: RisperiDONE 2 MG TABLET PO SCH ×2 (08:54→16:30)
[2017-03-01] MEDS: CIPROFLOXACIN HCL 500 MG TABLET PO SCH ×2 (08:54→16:31)
[2017-03-01] MEDS: IBUPROFEN 400 MG TABLET PO PRN (09:09)
[2017-03-01] MEDS: AmLODIPine BESYLATE 5 MG TABLET PO SCH (09:43)
[2017-03-01] MEDS ORDERED: GuaiFENesin/D-METHORPHAN/PHENYLEPH 5 ML LIQUID ORAL.SYG PO PRN (09:45)
[2017-03-01 10:09] VITALS: BP 135/75
[2017-03-01] MEDS: GuaiFENesin/D-METHORPHAN [SUGAR-FREE] 200-20MG/10 ML SYRUP UDCUP PO PRN (13:59)
[2017-03-01 16:35] VITALS: BP 133/84
[2017-03-01] MEDS: ZOLPIDEM TARTRATE 10 MG TABLET PO PRN (21:18)
[2017-03-02 06:36] VITALS: BP 140/72
[2017-03-02 08:50] VITALS: BP 121/71
[2017-03-02] MEDS: RisperiDONE 2 MG TABLET PO SCH ×2 (08:58→16:06)
[2017-03-02] MEDS: AmLODIPine BESYLATE 5 MG TABLET PO SCH (08:58)
[2017-03-02] MEDS: CIPROFLOXACIN HCL 500 MG TABLET PO SCH ×2 (08:58→16:06)
[2017-03-02] MEDS: GuaiFENesin/D-METHORPHAN [SUGAR-FREE] 200-20MG/10 ML SYRUP UDCUP PO PRN (08:58)
[2017-03-02] MEDS: FLUoxetine HCL 20 MG CAPSULE PO SCH (08:58)
[2017-03-02] MEDS: IBUPROFEN 400 MG TABLET PO PRN (09:38)
[2017-03-02] MEDS: ALBUTEROL SULFATE HFA 90 MCG/PUFF 8 GM INHALER IH PRN ×2 (09:38→16:11)
[2017-03-02] MEDS: NICOTINE 7 MG/24 HOUR PATCH TD SCH (10:27)
[2017-03-02 16:00] VITALS: BP 116/64
[2017-03-02] MEDS: LORazepam 2 MG TABLET PO PRN (16:06)
[2017-03-03 00:47] VITALS: BP 142/61
[2017-03-03] MEDS: ZOLPIDEM TARTRATE 10 MG TABLET PO PRN (02:09)
[2017-03-03] MEDS: GuaiFENesin/D-METHORPHAN [SUGAR-FREE] 200-20MG/10 ML SYRUP UDCUP PO PRN (06:29)
[2017-03-03] MEDS: AmLODIPine BESYLATE 5 MG TABLET PO SCH (09:11)
[2017-03-03] MEDS: NICOTINE 7 MG/24 HOUR PATCH TD SCH (09:11)
[2017-03-03] MEDS: RisperiDONE 2 MG TABLET PO SCH ×2 (09:11→16:09)
[2017-03-03] MEDS: FLUoxetine HCL 20 MG CAPSULE PO SCH (09:11)
[2017-03-03] MEDS: IBUPROFEN 400 MG TABLET PO PRN (09:13)
[2017-03-03 09:16] VITALS: BP 113/66
[2017-03-03] MEDS: LORazepam 2 MG TABLET PO PRN ×2 (10:54→16:09)
[2017-03-03 16:14] VITALS: BP 128/60
[2017-03-04 00:32] VITALS: BP 140/78
[2017-03-04] MEDS: ZOLPIDEM TARTRATE 10 MG TABLET PO PRN (02:38)
[2017-03-04] MEDS: AmLODIPine BESYLATE 5 MG TABLET PO SCH (08:34)
[2017-03-04] MEDS: RisperiDONE 2 MG TABLET PO SCH ×2 (08:34→16:07)
[2017-03-04] MEDS: FLUoxetine HCL 20 MG CAPSULE PO SCH (08:34)
[2017-03-04] MEDS: GuaiFENesin/D-METHORPHAN [SUGAR-FREE] 200-20MG/10 ML SYRUP UDCUP PO PRN ×2 (08:35→16:39)
[2017-03-04] MEDS: NICOTINE 7 MG/24 HOUR PATCH TD SCH (08:35)
[2017-03-04 08:38] VITALS: BP 133/65
[2017-03-04 13:49] VITALS: BP 149/70
[2017-03-04] MEDS: IBUPROFEN 400 MG TABLET PO PRN (13:50)
[2017-03-04 14:50] VITALS: BP 135/72
[2017-03-04 16:16] VITALS: BP 139/72
[2017-03-04 17:01] VITALS: BP 135/80
[2017-03-04] MEDS: ACETAMINOPHEN 325 MG TABLET PO PRN (17:03)
[2017-03-05 00:15] VITALS: BP 136/74
[2017-03-05] MEDS: HALOPERIDOL 5 MG TABLET PO PRN ×3 (00:24→21:25)
[2017-03-05] MEDS: AmLODIPine BESYLATE 5 MG TABLET PO SCH (08:27)
[2017-03-05] MEDS: RisperiDONE 2 MG TABLET PO SCH ×2 (08:27→16:43)
[2017-03-05] MEDS: FLUoxetine HCL 20 MG CAPSULE PO SCH (08:27)
[2017-03-05] MEDS: NICOTINE 7 MG/24 HOUR PATCH TD SCH (08:27)
[2017-03-05 08:54] VITALS: BP 128/61
[2017-03-05] MEDS: GuaiFENesin/D-METHORPHAN [SUGAR-FREE] 200-20MG/10 ML SYRUP UDCUP PO PRN ×2 (09:29→17:44)
[2017-03-05 16:14] VITALS: BP 132/75
[2017-03-05] MEDS: IBUPROFEN 400 MG TABLET PO PRN (16:43)
[2017-03-06 02:24] VITALS: BP 128/76
[2017-03-06] MEDS: HALOPERIDOL 5 MG TABLET PO PRN (02:27)
[2017-03-06] MEDS: RisperiDONE 2 MG TABLET PO SCH (08:38)
[2017-03-06] MEDS: AmLODIPine BESYLATE 5 MG TABLET PO SCH (08:38)
[2017-03-06] MEDS: FLUoxetine HCL 20 MG CAPSULE PO SCH (08:38)
[2017-03-06] MEDS: GuaiFENesin/D-METHORPHAN [SUGAR-FREE] 200-20MG/10 ML SYRUP UDCUP PO PRN (08:39)
[2017-03-06] MEDS: NICOTINE 7 MG/24 HOUR PATCH TD SCH (08:40)
[2017-03-06 08:44] VITALS: BP 119/63
[2017-03-06] MEDS ORDERED: FLUO-191 PO (10:22)
== END 2017-03-06 11:20 | disposition home or self-care (01) | DRG 885 ==
LOC: B2S 15:33 → EDSTATUS 15:38
PROVIDERS: ADMIT Psychiatry & Neurology Psychiatry; ATTEND Psychiatry & Neurology Psychiatry
DX: F25.0 Schizoaffective disorder, bipolar type (principal); F15.20 Other stimulant dependence, uncomplicated; N39.0 Urinary tract infection, site not specified; R45.851 Suicidal ideations; M19.90 Unspecified osteoarthritis, unspecified site; E11.9 Type 2 diabetes mellitus without complications; F32.9 Major depressive disorder, single episode, unspecified; E87.6 Hypokalemia; E78.5 Hyperlipidemia, unspecified; I10 Essential (primary) hypertension; B96.20 Unspecified Escherichia coli [E. coli] as the cause of diseases classified elsewhere; F15.90 Other stimulant use, unspecified, uncomplicated; Z79.899 Other long term (current) drug therapy; Z86.73 Personal history of transient ischemic attack (TIA), and cerebral infarction without residual deficits; Z91.5 Personal history of self-harm; Z59.0 Homelessness; Z88.0 Allergy status to penicillin; Z88.8 Allergy status to other drugs, medicaments and biological substances
CPT/HCPCS: 87081; 87086; J3535

== ENCOUNTER 2017-03-17 14:09 | Inpatient (IN) | payer MEDICARE, MEDICAID ==
[~2017-03-17] VITALS: Ht 165.1 cm; Wt 105.6 kg
[~2017-03-17 14:09] MED LIST changes: -ACID1GRA3 PO; -CITA20TA9 PO; +FLUO-191 PO
[2017-03-17] MEDS ORDERED: QUET25TA PO (14:20)
[2017-03-17 15:00] LABS: BASOPHILS % (AUTO) 1.2 % (0.0-2.0); EOSINOPHILS % (AUTO) 5.4 % (1.0-6.0); HEMATOCRIT 42.4 % (36-46); HEMOGLOBIN 13.9 g/dL (12.0-16.0); LYMPHOCYTES # (AUTO) 2.9 K/uL (1.0-4.8); LYMPHOCYTES % (AUTO) 40.7 % (22.0-44.0); MEAN CORPUSCULAR HEMOGLOBIN 27.2 pg (26.0-34.0); MEAN CORPUSCULAR HGB CONC 32.9 G/dL (31.0-37.0); MEAN CORPUSCULAR VOLUME 83 fL (80-100); MONOCYTES # (AUTO) 0.4 K/uL (0.1-1.0); MONOCYTES % (AUTO) 5.3 % (2.0-9.0); NEUTROPHILS # (AUTO) 3.4 K/uL (1.8-7.7); NEUTROPHILS % (AUTO) 47.4 % (40.0-70.0); PLATELET COUNT (AUTO) 403 K/uL (150-450); RED BLOOD CELL COUNT(AUTO) 5.13 MIL/uL (4.00-5.20); RED CELL DISTRIBUTION WIDTH 17.1 % (11.5-14.5); WHITE BLOOD COUNT (AUTO) 7.2 K/uL (4.5-11.0)
[2017-03-17 15:14] LABS: ANION GAP 9 mmol/L (8-16); CARBON DIOXIDE 29 mmol/L (22-29); CHLORIDE 103 mmol/L (98-107); CREATININE 1.02 mg/dL (0.60-1.30); GLOMERULAR FILTR. RATE CALC > 60 mL/min (>60); POTASSIUM 3.4 mmol/L (3.5-5.1); SODIUM SERUM 141 mmol/L (136-145); UREA NITROGEN, BLOOD 9 mg/dL (7-18)
[2017-03-17 15:20] LABS: ALANINE AMINOTRANSFERASE 24 U/L (12-78); ALBUMIN 3.4 g/dL (3.4-5.0); ASPARTATE AMINOTRANSFERASE 23 U/L (15-37); BILIRUBIN,TOTAL 0.7 mg/dL (0.1-1.0); TOTAL PROTEIN, SERUM 7.7 g/dL (6.4-8.2)
[2017-03-17 15:59] LABS: RBC MORPHOLOGY COMMENT ABNORMAL RBC MORPH
[2017-03-17] MEDS ORDERED: HALOPERIDOL 5 MG TABLET PO ONE (16:00)
[2017-03-17] MEDS ORDERED: LORazepam 2 MG TABLET PO ONE (16:00)
[2017-03-17] MEDS ORDERED: RISP2 PO (16:04)
[2017-03-17] MEDS ORDERED: AMLO-511 PO (16:04)
[2017-03-17] MEDS ORDERED: ZOLPIDEM TARTRATE 10 MG TABLET PO PRN (16:30)
[2017-03-17] MEDS ORDERED: HALOPERIDOL 5 MG TABLET PO PRN (16:30)
[2017-03-17 19:59] VITALS: BP 100/63
[2017-03-17] MEDS ORDERED: -PHARMACY VACCINE NOTE- MISC ONE ×2 (20:15)
[2017-03-18 01:57] VITALS: BP 107/67
[2017-03-18] MEDS ORDERED: POTASSIUM CHLORIDE 20 MEQ ER TABLET PO ONE (07:30)
[2017-03-18 08:00] VITALS: BP 144/71
[2017-03-19 01:54] VITALS: BP 130/66
[2017-03-19 08:13] VITALS: BP 137/69
[2017-03-19 09:30] LABS: ANION GAP 6 mmol/L (8-16); CALCIUM, TOTAL 8.6 mg/dL (8.8-10.5); CARBON DIOXIDE 28 mmol/L (22-29); CHLORIDE 104 mmol/L (98-107); CHOL/HDL RATIO 4.1 (3.9-5.7); CREATININE 0.78 mg/dL (0.60-1.30); GLOMERULAR FILTR. RATE CALC > 60 mL/min (>60); POTASSIUM 3.6 mmol/L (3.5-5.1); SODIUM SERUM 138 mmol/L (136-145); UREA NITROGEN, BLOOD 13 mg/dL (7-18)
[2017-03-19 17:05] VITALS: BP 134/74
[2017-03-20 04:51] VITALS: BP 112/67
[2017-03-20 08:51] VITALS: BP 136/61
[2017-03-20] MEDS: RisperiDONE 2 MG TABLET PO SCH ×2 (08:56→16:33)
[2017-03-20] MEDS: PANTOPRAZOLE SODIUM 40 MG DR TABLET PO SCH (08:56)
[2017-03-20 16:11] VITALS: BP 143/63
[2017-03-21 05:56] VITALS: BP 133/91
[2017-03-21 08:25] VITALS: BP 132/71
[2017-03-21] MEDS: RisperiDONE 2 MG TABLET PO SCH ×2 (08:42→16:06)
[2017-03-21] MEDS: PANTOPRAZOLE SODIUM 40 MG DR TABLET PO SCH (08:42)
[2017-03-21 16:10] VITALS: BP 120/68
[2017-03-22 07:01] VITALS: BP 132/68
[2017-03-22 08:01] VITALS: BP 130/68
[2017-03-22] MEDS: PANTOPRAZOLE SODIUM 40 MG DR TABLET PO SCH (08:55)
[2017-03-22] MEDS: RisperiDONE 2 MG TABLET PO SCH ×2 (08:55→16:22)
[2017-03-22] MEDS: LORazepam 2 MG TABLET PO PRN (08:56)
[2017-03-22 16:23] VITALS: BP 136/70
[2017-03-23 06:24] VITALS: BP 132/91
[2017-03-23] MEDS: PANTOPRAZOLE SODIUM 40 MG DR TABLET PO SCH (08:01)
[2017-03-23] MEDS: RisperiDONE 2 MG TABLET PO SCH ×2 (08:01→16:30)
[2017-03-23] MEDS: NICOTINE 21 MG/24 HOUR PATCH TD SCH (09:15)
[2017-03-23 10:37] VITALS: BP 134/61
[2017-03-23 16:14] VITALS: BP 125/68
[2017-03-24 01:34] VITALS: BP 130/71
[2017-03-24] MEDS: LORazepam 2 MG TABLET PO PRN ×2 (01:36→08:23)
[2017-03-24 08:03] VITALS: BP 126/68
[2017-03-24] MEDS: RisperiDONE 2 MG TABLET PO SCH (08:22)
[2017-03-24] MEDS: NICOTINE 21 MG/24 HOUR PATCH TD SCH (08:22)
[2017-03-24] MEDS: PANTOPRAZOLE SODIUM 40 MG DR TABLET PO SCH (08:22)
== END 2017-03-24 12:57 | DRG 885 ==
LOC: EMS 14:12 → B3A 16:26
PROVIDERS: ADMIT Psychiatry & Neurology Psychiatry; ATTEND Psychiatry & Neurology Psychiatry
DX: F25.9 Schizoaffective disorder, unspecified (principal); R45.851 Suicidal ideations; D72.829 Elevated white blood cell count, unspecified; E11.9 Type 2 diabetes mellitus without complications; E87.6 Hypokalemia; K25.9 Gastric ulcer, unspecified as acute or chronic, without hemorrhage or perforation; Z82.49 Family history of ischemic heart disease and other diseases of the circulatory system; Z83.3 Family history of diabetes mellitus; F19.10 Other psychoactive substance abuse, uncomplicated
CPT/HCPCS: 84436; 84439; 87081; 99285; G0480

== ENCOUNTER 2017-03-24 13:19 | Inpatient (IN) | payer MEDICARE, MEDICAID ==
[~2017-03-24] VITALS: Ht 170.2 cm; Wt 111.0 kg
[~2017-03-24 13:19] MED LIST changes: +AMLO-511 PO; -AMLO2.5T PO; -FLUO-191 PO; +QUET25TA PO; -RISP1 PO; +RISP2 PO
[2017-03-24] MEDS ORDERED: LORazepam 1 MG TABLET PO PRN (13:30)
[2017-03-24] MEDS ORDERED: HALOPERIDOL 5 MG TABLET PO PRN (13:30)
[2017-03-24 14:39] VITALS: BP 119/76
[2017-03-24 16:08] VITALS: BP 139/87
[2017-03-24] MEDS: RisperiDONE 2 MG TABLET PO SCH (16:24)
[2017-03-25 00:15] VITALS: BP 122/66
[2017-03-25] MEDS: RisperiDONE 2 MG TABLET PO SCH ×2 (08:13→16:28)
[2017-03-25] MEDS: NICOTINE 21 MG/24 HOUR PATCH TD SCH (08:13)
[2017-03-25] MEDS ORDERED: PANTOPRAZOLE SODIUM 40 MG DR TABLET PO SCH (09:00)
[2017-03-25 09:15] VITALS: BP 140/72
[2017-03-25] MEDS ORDERED: LOPERAMIDE HCL 2 MG CAPSULE PO PRN (13:00)
[2017-03-25 16:04] VITALS: BP 122/75
[2017-03-25] MEDS ORDERED: ONDANSETRON HCL 4 MG TABLET PO PRN (17:00)
[2017-03-26] MEDS: BISMUTH SUBSALICYLATE 524 MG/30 ML SUSPENSION UDCUP PO PRN (00:25)
[2017-03-26 02:37] VITALS: BP 116/66
[2017-03-26 08:14] VITALS: BP 106/56
[2017-03-26] MEDS: RisperiDONE 2 MG TABLET PO SCH ×2 (08:18→16:39)
[2017-03-26] MEDS: NICOTINE 21 MG/24 HOUR PATCH TD SCH (08:18)
[2017-03-26 16:05] VITALS: BP 133/80
[2017-03-26] MEDS ORDERED: ACETAMINOPHEN 325 MG TABLET PO PRN (16:30)
[2017-03-26] MEDS: IBUPROFEN 600 MG TABLET PO PRN (16:39)
[2017-03-26] MEDS: GuaiFENesin/D-METHORPHAN [SUGAR-FREE] 200-20MG/10 ML SYRUP UDCUP PO PRN (21:23)
[2017-03-27 00:01] VITALS: BP 138/73
[2017-03-27] MEDS: ZOLPIDEM TARTRATE 10 MG TABLET PO PRN (00:01)
[2017-03-27] MEDS: RisperiDONE 2 MG TABLET PO SCH ×2 (08:16→16:22)
[2017-03-27] MEDS: NICOTINE 21 MG/24 HOUR PATCH TD SCH (08:17)
[2017-03-27 08:20] VITALS: BP 115/57
[2017-03-27] MEDS: GuaiFENesin/D-METHORPHAN [SUGAR-FREE] 200-20MG/10 ML SYRUP UDCUP PO PRN (12:50)
[2017-03-27 16:31] VITALS: BP 131/76
[2017-03-27] MEDS: IBUPROFEN 600 MG TABLET PO PRN (16:31)
[2017-03-27] MEDS: RisperiDONE 3 MG TABLET PO SCH (20:29)
[2017-03-28 04:39] VITALS: BP 111/60
[2017-03-28 08:10] VITALS: BP 117/68
[2017-03-28] MEDS: RisperiDONE 2 MG TABLET PO SCH (08:12)
[2017-03-28] MEDS: NICOTINE 21 MG/24 HOUR PATCH TD SCH (08:12)
[2017-03-28] MEDS: BISMUTH SUBSALICYLATE 524 MG/30 ML SUSPENSION UDCUP PO PRN (14:05)
[2017-03-28 16:11] VITALS: BP 123/72
[2017-03-28] MEDS: RisperiDONE 3 MG TABLET PO SCH (20:02)
[2017-03-29 00:10] VITALS: BP 113/69
[2017-03-29] MEDS: ZOLPIDEM TARTRATE 10 MG TABLET PO PRN (01:31)
[2017-03-29 08:06] VITALS: BP 125/79
[2017-03-29] MEDS: NICOTINE 21 MG/24 HOUR PATCH TD SCH (08:11)
[2017-03-29] MEDS: RisperiDONE 2 MG TABLET PO SCH (08:11)
[2017-03-29] MEDS: PANTOPRAZOLE SODIUM 40 MG DR TABLET PO SCH (09:00)
[2017-03-29] MEDS: GuaiFENesin/D-METHORPHAN [SUGAR-FREE] 200-20MG/10 ML SYRUP UDCUP PO PRN (10:55)
[2017-03-29 16:11] VITALS: BP 136/70
[2017-03-29] MEDS: RisperiDONE 3 MG TABLET PO SCH (20:10)
[2017-03-30 06:52] VITALS: BP 137/78
[2017-03-30 08:29] VITALS: BP 130/80
[2017-03-30] MEDS: RisperiDONE 2 MG TABLET PO SCH (08:45)
[2017-03-30] MEDS: NICOTINE 21 MG/24 HOUR PATCH TD SCH (08:46)
[2017-03-30] MEDS: PANTOPRAZOLE SODIUM 40 MG DR TABLET PO SCH (08:51)
[2017-03-30 16:11] VITALS: BP 134/75
[2017-03-30] MEDS: RisperiDONE 3 MG TABLET PO SCH (20:34)
[2017-03-31 01:55] VITALS: BP 116/65
[2017-03-31] MEDS: ZOLPIDEM TARTRATE 10 MG TABLET PO PRN ×2 (02:45→20:57)
[2017-03-31 08:07] VITALS: BP 108/67
[2017-03-31] MEDS: PANTOPRAZOLE SODIUM 40 MG DR TABLET PO SCH (09:00)
[2017-03-31] MEDS: RisperiDONE 2 MG TABLET PO SCH (09:06)
[2017-03-31] MEDS: NICOTINE 21 MG/24 HOUR PATCH TD SCH (09:06)
[2017-03-31 13:01] VITALS: BP 138/68
[2017-03-31] MEDS: IBUPROFEN 600 MG TABLET PO PRN ×2 (13:01→20:54)
[2017-03-31 16:18] VITALS: BP 137/77
[2017-03-31 19:28] VITALS: BP 129/72
[2017-03-31] MEDS: RisperiDONE 3 MG TABLET PO SCH (20:36)
[2017-04-01 00:33] VITALS: BP 137/74
[2017-04-01 08:09] VITALS: BP 117/61
[2017-04-01] MEDS: RisperiDONE 2 MG TABLET PO SCH (08:40)
[2017-04-01] MEDS: NICOTINE 21 MG/24 HOUR PATCH TD SCH (08:40)
[2017-04-01] MEDS: PANTOPRAZOLE SODIUM 40 MG DR TABLET PO SCH (08:50)
[2017-04-01 13:11] VITALS: BP 124/68
[2017-04-01] MEDS: IBUPROFEN 600 MG TABLET PO PRN (13:11)
[2017-04-01 16:34] VITALS: BP 112/84
[2017-04-01] MEDS: RisperiDONE 3 MG TABLET PO SCH (20:34)
[2017-04-02 00:45] VITALS: BP 138/74
[2017-04-02] MEDS: ZOLPIDEM TARTRATE 10 MG TABLET PO PRN ×2 (00:47→21:24)
[2017-04-02 08:10] VITALS: BP 123/72
[2017-04-02] MEDS: RisperiDONE 2 MG TABLET PO SCH (08:11)
[2017-04-02] MEDS: NICOTINE 21 MG/24 HOUR PATCH TD SCH (08:11)
[2017-04-02 08:18] LABS: BASOPHILS % (AUTO) 0.9 % (0.0-2.0); HEMATOCRIT 39.4 % (36-46); LYMPHOCYTES # (AUTO) 3.5 K/uL (1.0-4.8); LYMPHOCYTES % (AUTO) 41.2 % (22.0-44.0); MEAN CORPUSCULAR HEMOGLOBIN 27.2 pg (26.0-34.0); MEAN CORPUSCULAR HGB CONC 32.8 G/dL (31.0-37.0); MEAN CORPUSCULAR VOLUME 83 fL (80-100); MONOCYTES # (AUTO) 0.7 K/uL (0.1-1.0); MONOCYTES % (AUTO) 7.8 % (2.0-9.0); NEUTROPHILS # (AUTO) 3.3 K/uL (1.8-7.7); NEUTROPHILS % (AUTO) 39.1 % (40.0-70.0); PLATELET COUNT (AUTO) 305 K/uL (150-450); RED BLOOD CELL COUNT(AUTO) 4.76 MIL/uL (4.00-5.20); RED CELL DISTRIBUTION WIDTH 16.2 % (11.5-14.5); WHITE BLOOD COUNT (AUTO) 8.4 K/uL (4.5-11.0)
[2017-04-02 08:33] LABS: HEMOGLOBIN A1C 6.2 % (4.5-6.2)
[2017-04-02] MEDS: IBUPROFEN 600 MG TABLET PO PRN ×2 (08:33→19:39)
[2017-04-02 08:42] LABS: ALANINE AMINOTRANSFERASE 24 U/L (12-78); ALBUMIN 3.1 g/dL (3.4-5.0); ANION GAP 11 mmol/L (8-16); ASPARTATE AMINOTRANSFERASE 18 U/L (15-37); BILIRUBIN,TOTAL 0.5 mg/dL (0.1-1.0); CALCIUM, TOTAL 9.4 mg/dL (8.8-10.5); CARBON DIOXIDE 27 mmol/L (22-29); CHLORIDE 102 mmol/L (98-107); CHOL/HDL RATIO 4.5 (3.9-5.7); CREATININE 0.72 mg/dL (0.60-1.30); GLOMERULAR FILTR. RATE CALC > 60 mL/min (>60); POTASSIUM 4.1 mmol/L (3.5-5.1); SODIUM SERUM 140 mmol/L (136-145); TOTAL PROTEIN, SERUM 7.3 g/dL (6.4-8.2); UREA NITROGEN, BLOOD 11 mg/dL (7-18)
[2017-04-02] MEDS: PANTOPRAZOLE SODIUM 40 MG DR TABLET PO SCH (09:00)
[2017-04-02 16:34] VITALS: BP 135/69
[2017-04-02 19:37] VITALS: BP 126/74
[2017-04-02] MEDS: RisperiDONE 3 MG TABLET PO SCH (20:35)
[2017-04-03 06:02] VITALS: BP 130/76
[2017-04-03] MEDS: RisperiDONE 2 MG TABLET PO SCH (08:32)
[2017-04-03] MEDS: NICOTINE 21 MG/24 HOUR PATCH TD SCH (08:32)
[2017-04-03] MEDS: IBUPROFEN 600 MG TABLET PO PRN ×2 (08:35→16:09)
[2017-04-03 08:36] VITALS: BP 124/69
[2017-04-03] MEDS: PANTOPRAZOLE SODIUM 40 MG DR TABLET PO SCH (09:00)
[2017-04-03 16:11] VITALS: BP 137/68
[2017-04-03] MEDS: RisperiDONE 3 MG TABLET PO SCH (20:31)
[2017-04-03] MEDS: ZOLPIDEM TARTRATE 10 MG TABLET PO PRN (21:41)
[2017-04-04 01:47] VITALS: BP 124/78
[2017-04-04] MEDS: NICOTINE 21 MG/24 HOUR PATCH TD SCH (08:50)
[2017-04-04] MEDS: RisperiDONE 2 MG TABLET PO SCH (08:50)
[2017-04-04] MEDS: PANTOPRAZOLE SODIUM 40 MG DR TABLET PO SCH (08:54)
[2017-04-04 08:55] VITALS: BP 126/59
[2017-04-04] MEDS: IBUPROFEN 600 MG TABLET PO PRN ×2 (08:55→16:15)
[2017-04-04 16:10] VITALS: BP 135/75
[2017-04-04] MEDS: RisperiDONE 3 MG TABLET PO SCH (20:34)
[2017-04-04] MEDS: ZOLPIDEM TARTRATE 10 MG TABLET PO PRN (22:57)
[2017-04-05 00:11] VITALS: BP 127/69
[2017-04-05 08:48] VITALS: BP 118/62
[2017-04-05] MEDS: RisperiDONE 2 MG TABLET PO SCH (08:50)
[2017-04-05] MEDS: NICOTINE 21 MG/24 HOUR PATCH TD SCH (08:50)
[2017-04-05] MEDS: IBUPROFEN 600 MG TABLET PO PRN ×2 (08:51→16:34)
[2017-04-05] MEDS: PANTOPRAZOLE SODIUM 40 MG DR TABLET PO SCH (09:00)
[2017-04-05 16:35] VITALS: BP 135/68
[2017-04-05] MEDS: RisperiDONE 3 MG TABLET PO SCH (20:53)
[2017-04-05] MEDS: ZOLPIDEM TARTRATE 10 MG TABLET PO PRN (21:09)
[2017-04-06 01:53] VITALS: BP 140/73
[2017-04-06] MEDS: IBUPROFEN 600 MG TABLET PO PRN ×2 (01:59→16:08)
[2017-04-06 08:00] VITALS: BP 118/67
[2017-04-06] MEDS: RisperiDONE 2 MG TABLET PO SCH (08:37)
[2017-04-06] MEDS: NICOTINE 21 MG/24 HOUR PATCH TD SCH (08:37)
[2017-04-06] MEDS: PANTOPRAZOLE SODIUM 40 MG DR TABLET PO SCH (08:46)
[2017-04-06 16:08] VITALS: BP 133/73
[2017-04-06] MEDS: RisperiDONE 3 MG TABLET PO SCH (20:09)
[2017-04-06] MEDS: ZOLPIDEM TARTRATE 10 MG TABLET PO PRN (20:34)
[2017-04-07 02:44] VITALS: BP 134/74
[2017-04-07] MEDS: NICOTINE 21 MG/24 HOUR PATCH TD SCH (08:01)
[2017-04-07] MEDS: RisperiDONE 2 MG TABLET PO SCH (08:01)
[2017-04-07] MEDS: PANTOPRAZOLE SODIUM 40 MG DR TABLET PO SCH (08:07)
[2017-04-07 09:18] VITALS: BP 115/72
[2017-04-07] MEDS: IBUPROFEN 600 MG TABLET PO PRN (14:25)
[2017-04-07 16:07] VITALS: BP 134/65
[2017-04-07] MEDS: RisperiDONE 3 MG TABLET PO SCH (20:02)
[2017-04-07] MEDS: ZOLPIDEM TARTRATE 10 MG TABLET PO PRN (20:32)
[2017-04-08 00:31] VITALS: BP 139/75
[2017-04-08 08:05] VITALS: BP 112/75
[2017-04-08] MEDS: NICOTINE 21 MG/24 HOUR PATCH TD SCH (08:57)
[2017-04-08] MEDS: RisperiDONE 2 MG TABLET PO SCH (08:57)
[2017-04-08] MEDS: PANTOPRAZOLE SODIUM 40 MG DR TABLET PO SCH (09:00)
[2017-04-08 16:05] VITALS: BP 138/70
[2017-04-08] MEDS: IBUPROFEN 600 MG TABLET PO PRN (16:08)
[2017-04-08] MEDS: BISMUTH SUBSALICYLATE 524 MG/30 ML SUSPENSION UDCUP PO PRN (18:43)
[2017-04-08] MEDS: RisperiDONE 3 MG TABLET PO SCH (20:34)
[2017-04-08] MEDS: ZOLPIDEM TARTRATE 10 MG TABLET PO PRN (20:56)
[2017-04-09 04:31] VITALS: BP 106/68
[2017-04-09] MEDS: RisperiDONE 2 MG TABLET PO SCH (08:00)
[2017-04-09] MEDS: NICOTINE 21 MG/24 HOUR PATCH TD SCH (08:01)
[2017-04-09] MEDS: IBUPROFEN 600 MG TABLET PO PRN (08:01)
[2017-04-09 08:07] VITALS: BP 127/71
[2017-04-09] MEDS: PANTOPRAZOLE SODIUM 40 MG DR TABLET PO SCH (09:00)
[2017-04-09] MEDS: GuaiFENesin/D-METHORPHAN [SUGAR-FREE] 200-20MG/10 ML SYRUP UDCUP PO PRN (15:57)
[2017-04-09 16:13] VITALS: BP 134/64
[2017-04-09] MEDS: RisperiDONE 3 MG TABLET PO SCH (20:33)
[2017-04-09] MEDS: ZOLPIDEM TARTRATE 10 MG TABLET PO PRN (21:24)
[2017-04-10 03:16] VITALS: BP 129/67
[2017-04-10 08:03] VITALS: BP 126/69
[2017-04-10] MEDS: PANTOPRAZOLE SODIUM 40 MG DR TABLET PO SCH ×2 (08:16→09:00)
[2017-04-10] MEDS: RisperiDONE 2 MG TABLET PO SCH (08:16)
[2017-04-10] MEDS: NICOTINE 21 MG/24 HOUR PATCH TD SCH (08:17)
[2017-04-10] MEDS: GuaiFENesin/D-METHORPHAN [SUGAR-FREE] 200-20MG/10 ML SYRUP UDCUP PO PRN (15:51)
[2017-04-10 16:04] VITALS: BP 140/75
[2017-04-10 19:23] VITALS: BP 134/81
[2017-04-10] MEDS: IBUPROFEN 600 MG TABLET PO PRN (19:23)
[2017-04-10] MEDS: RisperiDONE 3 MG TABLET PO SCH (20:33)
[2017-04-10] MEDS: ZOLPIDEM TARTRATE 10 MG TABLET PO PRN (21:13)
[2017-04-11 08:08] VITALS: BP 129/73
[2017-04-11] MEDS: RisperiDONE 2 MG TABLET PO SCH (08:57)
[2017-04-11] MEDS: NICOTINE 21 MG/24 HOUR PATCH TD SCH (08:57)
[2017-04-11] MEDS: PANTOPRAZOLE SODIUM 40 MG DR TABLET PO SCH (09:00)
[2017-04-11] MEDS ORDERED: RISP3 PO (09:30)
[2017-04-11] MEDS ORDERED: PANT40TA25 PO (09:30)
[2017-04-11 10:37] VITALS: BP 124/74
[2017-04-11] MEDS: IBUPROFEN 600 MG TABLET PO PRN (10:37)
== END 2017-04-11 13:00 | disposition home or self-care (01) | DRG 885 ==
LOC: B2X 13:39 → EDSTATUS 13:44 → B2X 03-31 12:05
PROVIDERS: ADMIT Psychiatry & Neurology Psychiatry; ATTEND Psychiatry & Neurology Psychiatry
DX: F25.1 Schizoaffective disorder, depressive type (principal); R45.851 Suicidal ideations; D72.829 Elevated white blood cell count, unspecified; E11.9 Type 2 diabetes mellitus without complications; E78.1 Pure hyperglyceridemia; E87.6 Hypokalemia; F22 Delusional disorders; K25.9 Gastric ulcer, unspecified as acute or chronic, without hemorrhage or perforation; Z59.0 Homelessness; Z82.49 Family history of ischemic heart disease and other diseases of the circulatory system; Z83.3 Family history of diabetes mellitus; Z87.11 Personal history of peptic ulcer disease; Z88.0 Allergy status to penicillin
CPT/HCPCS: 83036; 87081; Q0162

== ENCOUNTER 2017-05-14 20:10 | Inpatient (IN) | payer MEDICARE, MEDICAID ==
[~2017-05-14] VITALS: Ht 170.2 cm; Wt 109.4 kg
[~2017-05-14 20:10] MED LIST changes: +ALBU8HFA IH; -AMLO-511 PO; -QUET25TA PO; +QUET300T2 PO; -RISP2 PO; +RISP3 PO
[2017-05-14] MEDS ORDERED: LORazepam 2 MG TABLET PO PRN (20:30)
[2017-05-14] MEDS ORDERED: ZOLPIDEM TARTRATE 10 MG TABLET PO PRN (20:30)
[2017-05-14] MEDS ORDERED: HALOPERIDOL 5 MG TABLET PO PRN (20:30)
[2017-05-14 20:56] VITALS: BP 122/81
[2017-05-14] MEDS: QUEtiapine FUMARATE 300 MG TABLET PO SCH (21:00)
[2017-05-14] MEDS ORDERED: CloNIDine HCL 0.1 MG TABLET PO PRN (21:45)
[2017-05-14] MEDS ORDERED: ALBUTEROL SULFATE HFA 90 MCG/PUFF 8 GM INHALER IH PRN (21:45)
[2017-05-14] MEDS ORDERED: LOPERAMIDE HCL 2 MG CAPSULE PO PRN (21:45)
[2017-05-14] MEDS ORDERED: ONDANSETRON HCL 4 MG TABLET PO PRN (21:45)
[2017-05-14] MEDS ORDERED: PETROLATUM,WHITE 71 GM JELLY TP PRN (21:45)
[2017-05-14] MEDS ORDERED: IBUPROFEN 600 MG TABLET PO PRN (21:45)
[2017-05-14] MEDS ORDERED: MAG HYDROX/AL HYDROX/SIMETH ES 30 ML SUSPENSION UDCUP PO PRN (21:45)
[2017-05-14] MEDS ORDERED: BACITRACIN 28.4 GM OINTMENT TP PRN (21:45)
[2017-05-14] MEDS ORDERED: MAGNESIUM HYDROXIDE SUSPENSION 30 ML UDCUP PO PRN (21:45)
[2017-05-14] MEDS ORDERED: BENZOCAINE/MENTHOL LOZENGE [8 LOZENGES/PACKET] MM PRN (22:00)
[2017-05-15 07:03] LABS: BASOPHILS # (AUTO) 0.04 K/uL (0.00-0.20); BASOPHILS % (AUTO) 0.5 % (0.0-2.0); EOSINOPHILS # (AUTO) 0.66 K/uL (0.00-0.70); EOSINOPHILS % (AUTO) 8.44 % (1.0-6.0); HEMATOCRIT 37.4 % (36-46); LYMPHOCYTES # (AUTO) 4.5 K/uL (1.0-4.8); LYMPHOCYTES % (AUTO) 57.2 % (22.0-44.0); MEAN CORPUSCULAR HEMOGLOBIN 27.5 pg (26.0-34.0); MEAN CORPUSCULAR HGB CONC 32.1 G/dL (31.0-37.0); MEAN CORPUSCULAR VOLUME 86 fL (80-100); MONOCYTES # (AUTO) 0.6 K/uL (0.1-1.0); NEUTROPHILS # (AUTO) 2.1 K/uL (1.8-7.7); NEUTROPHILS % (AUTO) 26.9 % (40.0-70.0); PLATELET COUNT (AUTO) 303 K/uL (150-450); RED BLOOD CELL COUNT(AUTO) 4.35 MIL/uL (4.00-5.20); RED CELL DISTRIBUTION WIDTH 16.2 % (11.5-14.5); WHITE BLOOD COUNT (AUTO) 7.9 K/uL (4.5-11.0)
[2017-05-15 07:19] LABS: ALANINE AMINOTRANSFERASE 21 U/L (12-78); ALBUMIN 2.8 g/dL (3.4-5.0); ANION GAP 9 mmol/L (8-16); ASPARTATE AMINOTRANSFERASE 18 U/L (15-37); BILIRUBIN,TOTAL 0.3 mg/dL (0.1-1.0); CALCIUM, TOTAL 8.4 mg/dL (8.8-10.5); CARBON DIOXIDE 27 mmol/L (22-29); CHLORIDE 107 mmol/L (98-107); CREATININE 0.82 mg/dL (0.60-1.30); GLOMERULAR FILTR. RATE CALC > 60 mL/min (>60); POTASSIUM 4.1 mmol/L (3.5-5.1); SODIUM SERUM 143 mmol/L (136-145); TOTAL PROTEIN, SERUM 6.1 g/dL (6.4-8.2); UREA NITROGEN, BLOOD 15 mg/dL (7-18)
[2017-05-15 08:05] VITALS: BP 126/67
[2017-05-15] MEDS ORDERED: QUEtiapine FUMARATE 300 MG TABLET PO SCH (09:00)
[2017-05-15] MEDS: OMEPRAZOLE 20 MG CAPSULE PO SCH (11:20)
[2017-05-15] MEDS: RisperiDONE 3 MG TABLET PO SCH ×2 (11:20→17:00)
[2017-05-15] MEDS: DOCUSATE SODIUM 100 MG CAPSULE PO SCH (11:20)
[2017-05-15] MEDS: QUEtiapine FUMARATE 300 MG TABLET PO SCH ×2 (11:22→21:00)
[2017-05-16 04:08] VITALS: BP 134/80
[2017-05-16 08:30] VITALS: BP 149/78
[2017-05-16] MEDS: QUEtiapine FUMARATE 300 MG TABLET PO SCH ×2 (09:00→20:28)
[2017-05-16] MEDS: DOCUSATE SODIUM 100 MG CAPSULE PO SCH (09:07)
[2017-05-16] MEDS: OMEPRAZOLE 20 MG CAPSULE PO SCH (09:07)
[2017-05-16] MEDS: RisperiDONE 3 MG TABLET PO SCH ×2 (09:07→16:22)
[2017-05-17] MEDS: OMEPRAZOLE 20 MG CAPSULE PO SCH (08:00)
[2017-05-17] MEDS: DOCUSATE SODIUM 100 MG CAPSULE PO SCH (08:00)
[2017-05-17] MEDS: QUEtiapine FUMARATE 300 MG TABLET PO SCH ×2 (08:00→20:20)
[2017-05-17] MEDS: RisperiDONE 3 MG TABLET PO SCH ×2 (08:00→16:28)
[2017-05-17 08:15] VITALS: BP 164/97
[2017-05-17 16:51] VITALS: BP 128/83
[2017-05-18 06:51] LABS: CHOL/HDL RATIO 4.3 (3.9-5.7); THYROID STIMULATING HORMONE 1.2 uIU/mL (0.36-3.74)
[2017-05-18] MEDS: RisperiDONE 3 MG TABLET PO SCH ×2 (08:02→16:50)
[2017-05-18] MEDS: DOCUSATE SODIUM 100 MG CAPSULE PO SCH (08:02)
[2017-05-18] MEDS: OMEPRAZOLE 20 MG CAPSULE PO SCH (08:02)
[2017-05-18 08:15] VITALS: BP 152/112
[2017-05-18] MEDS: QUEtiapine FUMARATE 300 MG TABLET PO SCH ×2 (09:00→20:13)
[2017-05-18 23:04] VITALS: BP 148/88
[2017-05-19 03:30] VITALS: BP 124/79
[2017-05-19 08:15] VITALS: BP 153/75
[2017-05-19] MEDS: DOCUSATE SODIUM 100 MG CAPSULE PO SCH (08:15)
[2017-05-19] MEDS: RisperiDONE 3 MG TABLET PO SCH ×2 (08:15→16:40)
[2017-05-19] MEDS: OMEPRAZOLE 20 MG CAPSULE PO SCH (08:15)
[2017-05-19] MEDS: QUEtiapine FUMARATE 300 MG TABLET PO SCH ×2 (08:21→20:34)
[2017-05-19 16:29] LABS: APPEARANCE,URINE TURBID (CLEAR); GLUCOSE, URINE (UA) NEGATIVE (NEGATIVE); KETONES,URINE NEGATIVE (NEGATIVE); LEUKOCYTE ESTERASE ,URINE NEGATIVE (NEGATIVE); OCCULT BLOOD,URINE NEGATIVE (NEGATIVE); PROTEIN,URINE NEGATIVE (NEGATIVE)
[2017-05-19 16:49] LABS: ADD UA MICROSCOPIC YES
[2017-05-19 16:50] LABS: RBC,URINE 0-2 /HPF (0-2); SQUAMOUS EPITHELIAL CELL,UR Moderate /LPF (None Seen)
[2017-05-19 16:51] LABS: CALCIUM OXALATE CRYSTALS,UR Rare /LPF (None Seen)
[2017-05-19 16:56] VITALS: BP 158/75
[2017-05-20] MEDS: OMEPRAZOLE 20 MG CAPSULE PO SCH (08:50)
[2017-05-20] MEDS: DOCUSATE SODIUM 100 MG CAPSULE PO SCH (08:50)
[2017-05-20] MEDS: QUEtiapine FUMARATE 300 MG TABLET PO SCH ×3 (08:50→21:32)
[2017-05-20] MEDS: RisperiDONE 3 MG TABLET PO SCH ×2 (08:51→17:14)
[2017-05-20] MEDS ORDERED: AmLODIPine BESYLATE 5 MG TABLET PO SCH (09:00)
[2017-05-20 09:24] VITALS: BP 128/57
[2017-05-20] MEDS: NITROFURANTOIN/NITROFURAN MAC 100 MG CAPSULE [MACROBID] PO SCH ×2 (12:22→17:13)
[2017-05-20] MEDS: LISINOPRIL 20 MG TABLET PO SCH (12:23)
[2017-05-20 16:01] VITALS: BP 140/83
[2017-05-21 08:05] VITALS: BP 111/60
[2017-05-21] MEDS: OMEPRAZOLE 20 MG CAPSULE PO SCH (08:55)
[2017-05-21] MEDS: RisperiDONE 3 MG TABLET PO SCH ×2 (08:55→16:49)
[2017-05-21] MEDS: LISINOPRIL 20 MG TABLET PO SCH (08:55)
[2017-05-21] MEDS: NITROFURANTOIN/NITROFURAN MAC 100 MG CAPSULE [MACROBID] PO SCH ×2 (08:56→16:49)
[2017-05-21] MEDS: AmLODIPine BESYLATE 10 MG TABLET PO SCH (08:56)
[2017-05-21] MEDS: FISH OIL/OMEGA-3 FATTY ACIDS 500 MG CAPSULE PO SCH (08:56)
[2017-05-21] MEDS: DOCUSATE SODIUM 100 MG CAPSULE PO SCH (08:56)
[2017-05-21] MEDS: QUEtiapine FUMARATE 300 MG TABLET PO SCH ×2 (09:00→21:26)
[2017-05-21 16:15] VITALS: BP 136/70
[2017-05-22 01:29] VITALS: BP 120/69
[2017-05-22 08:05] VITALS: BP 124/70
[2017-05-22] MEDS: AmLODIPine BESYLATE 10 MG TABLET PO SCH (08:38)
[2017-05-22] MEDS: FISH OIL/OMEGA-3 FATTY ACIDS 500 MG CAPSULE PO SCH (08:38)
[2017-05-22] MEDS: LISINOPRIL 20 MG TABLET PO SCH (08:38)
[2017-05-22] MEDS: OMEPRAZOLE 20 MG CAPSULE PO SCH (08:38)
[2017-05-22] MEDS: DOCUSATE SODIUM 100 MG CAPSULE PO SCH (08:38)
[2017-05-22] MEDS: NITROFURANTOIN/NITROFURAN MAC 100 MG CAPSULE [MACROBID] PO SCH ×2 (08:39→16:53)
[2017-05-22] MEDS: RisperiDONE 3 MG TABLET PO SCH ×2 (08:40→16:53)
[2017-05-22] MEDS: QUEtiapine FUMARATE 300 MG TABLET PO SCH ×2 (09:00→21:06)
[2017-05-22 17:20] VITALS: BP 133/70
[2017-05-23 01:54] VITALS: BP 116/88
[2017-05-23 08:01] VITALS: BP 124/68
[2017-05-23] MEDS: QUEtiapine FUMARATE 300 MG TABLET PO SCH ×2 (09:00→20:06)
[2017-05-23] MEDS: DOCUSATE SODIUM 100 MG CAPSULE PO SCH (09:02)
[2017-05-23] MEDS: FISH OIL/OMEGA-3 FATTY ACIDS 500 MG CAPSULE PO SCH (09:02)
[2017-05-23] MEDS: NITROFURANTOIN/NITROFURAN MAC 100 MG CAPSULE [MACROBID] PO SCH ×2 (09:03→16:25)
[2017-05-23] MEDS: RisperiDONE 3 MG TABLET PO SCH ×2 (09:04→16:25)
[2017-05-23] MEDS: OMEPRAZOLE 20 MG CAPSULE PO SCH (09:04)
[2017-05-23] MEDS: AmLODIPine BESYLATE 10 MG TABLET PO SCH (09:04)
[2017-05-23] MEDS: LISINOPRIL 20 MG TABLET PO SCH (09:04)
[2017-05-23 20:00] VITALS: BP 125/65
[2017-05-24] MEDS: FISH OIL/OMEGA-3 FATTY ACIDS 500 MG CAPSULE PO SCH (08:40)
[2017-05-24] MEDS: AmLODIPine BESYLATE 10 MG TABLET PO SCH (08:40)
[2017-05-24] MEDS: QUEtiapine FUMARATE 300 MG TABLET PO SCH ×2 (08:41→21:02)
[2017-05-24] MEDS: RisperiDONE 3 MG TABLET PO SCH ×2 (08:41→16:45)
[2017-05-24] MEDS: NITROFURANTOIN/NITROFURAN MAC 100 MG CAPSULE [MACROBID] PO SCH ×2 (08:41→16:43)
[2017-05-24] MEDS: LISINOPRIL 20 MG TABLET PO SCH (08:41)
[2017-05-24] MEDS: OMEPRAZOLE 20 MG CAPSULE PO SCH (08:41)
[2017-05-24] MEDS: DOCUSATE SODIUM 100 MG CAPSULE PO SCH (08:41)
[2017-05-24 10:08] VITALS: BP 167/80
[2017-05-24 16:57] VITALS: BP 103/60
[2017-05-25] MEDS: DOCUSATE SODIUM 100 MG CAPSULE PO SCH (08:16)
[2017-05-25] MEDS: RisperiDONE 3 MG TABLET PO SCH ×2 (08:17→16:29)
[2017-05-25] MEDS: OMEPRAZOLE 20 MG CAPSULE PO SCH (08:17)
[2017-05-25] MEDS: AmLODIPine BESYLATE 10 MG TABLET PO SCH (08:17)
[2017-05-25] MEDS: FISH OIL/OMEGA-3 FATTY ACIDS 500 MG CAPSULE PO SCH (08:17)
[2017-05-25] MEDS: LISINOPRIL 20 MG TABLET PO SCH (08:17)
[2017-05-25] MEDS: QUEtiapine FUMARATE 300 MG TABLET PO SCH ×2 (08:21→20:20)
[2017-05-25 11:08] VITALS: BP 132/82
[2017-05-25 16:41] VITALS: BP 132/71
[2017-05-26 08:02] VITALS: BP 122/64
[2017-05-26] MEDS: DOCUSATE SODIUM 100 MG CAPSULE PO SCH (08:08)
[2017-05-26] MEDS: OMEPRAZOLE 20 MG CAPSULE PO SCH (08:09)
[2017-05-26] MEDS: LISINOPRIL 20 MG TABLET PO SCH (08:09)
[2017-05-26] MEDS: FISH OIL/OMEGA-3 FATTY ACIDS 500 MG CAPSULE PO SCH (08:09)
[2017-05-26] MEDS: AmLODIPine BESYLATE 10 MG TABLET PO SCH (08:09)
[2017-05-26] MEDS: RisperiDONE 3 MG TABLET PO SCH ×2 (08:09→17:21)
[2017-05-26] MEDS: QUEtiapine FUMARATE 300 MG TABLET PO SCH ×2 (08:09→21:05)
[2017-05-26 17:00] VITALS: BP 136/68
[2017-05-27] MEDS: DOCUSATE SODIUM 100 MG CAPSULE PO SCH (08:39)
[2017-05-27] MEDS: FISH OIL/OMEGA-3 FATTY ACIDS 500 MG CAPSULE PO SCH (08:40)
[2017-05-27] MEDS: OMEPRAZOLE 20 MG CAPSULE PO SCH (08:40)
[2017-05-27] MEDS: LISINOPRIL 20 MG TABLET PO SCH (08:40)
[2017-05-27] MEDS: AmLODIPine BESYLATE 10 MG TABLET PO SCH (08:40)
[2017-05-27] MEDS: RisperiDONE 3 MG TABLET PO SCH ×2 (08:40→16:05)
[2017-05-27] MEDS: QUEtiapine FUMARATE 300 MG TABLET PO SCH ×2 (08:40→21:27)
[2017-05-27 08:51] VITALS: BP 126/78
[2017-05-27 16:00] VITALS: BP 123/71
[2017-05-27] MEDS: ACETAMINOPHEN 325 MG TABLET PO PRN (16:05)
[2017-05-27 16:22] VITALS: BP 123/71
[2017-05-28] MEDS: OMEPRAZOLE 20 MG CAPSULE PO SCH (08:08)
[2017-05-28] MEDS: RisperiDONE 3 MG TABLET PO SCH ×2 (08:08→18:09)
[2017-05-28] MEDS: AmLODIPine BESYLATE 10 MG TABLET PO SCH (08:08)
[2017-05-28] MEDS: DOCUSATE SODIUM 100 MG CAPSULE PO SCH (08:08)
[2017-05-28] MEDS: FISH OIL/OMEGA-3 FATTY ACIDS 500 MG CAPSULE PO SCH (08:09)
[2017-05-28] MEDS: LISINOPRIL 20 MG TABLET PO SCH (08:10)
[2017-05-28] MEDS: QUEtiapine FUMARATE 300 MG TABLET PO SCH ×2 (08:25→20:11)
[2017-05-28 08:58] VITALS: BP 113/69
[2017-05-28] MEDS: ACETAMINOPHEN 325 MG TABLET PO PRN (14:13)
[2017-05-28 16:07] VITALS: BP 114/69
[2017-05-29] MEDS ORDERED: AMLO-512 PO (06:46)
[2017-05-29] MEDS ORDERED: OMEG-12 PO (06:49)
[2017-05-29] MEDS ORDERED: DSS100 PO (06:50)
[2017-05-29] MEDS ORDERED: LISI-662 PO (06:50)
[2017-05-29] MEDS ORDERED: OMEP20 PO (06:51)
== END 2017-05-29 07:30 | disposition home or self-care (01) | DRG 885 ==
LOC: 3EX 20:50
PROVIDERS: ADMIT Psychiatry & Neurology Psychiatry; ATTEND Psychiatry & Neurology Psychiatry
DX: F25.9 Schizoaffective disorder, unspecified (principal); E46 Unspecified protein-calorie malnutrition; R45.851 Suicidal ideations; E83.51 Hypocalcemia; Z59.0 Homelessness; N39.0 Urinary tract infection, site not specified; E66.9 Obesity, unspecified; I10 Essential (primary) hypertension; F15.10 Other stimulant abuse, uncomplicated; F17.200 Nicotine dependence, unspecified, uncomplicated; G47.00 Insomnia, unspecified; J44.9 Chronic obstructive pulmonary disease, unspecified; K21.9 Gastro-esophageal reflux disease without esophagitis; K59.00 Constipation, unspecified; M54.9 Dorsalgia, unspecified; Z71.51 Drug abuse counseling and surveillance of drug abuser; Z71.6 Tobacco abuse counseling; Z59.9 Problem related to housing and economic circumstances, unspecified; E78.1 Pure hyperglyceridemia; Z88.0 Allergy status to penicillin; Z68.37 Body mass index [BMI] 37.0-37.9, adult
CPT/HCPCS: 80307; 84443; 87081; 87086

== ENCOUNTER 2017-06-14 08:00 | Inpatient (IN) | payer MEDICARE, MEDICAID ==
[~2017-06-14] VITALS: Ht 170.2 cm; Wt 109.9 kg
[~2017-06-14 08:00] MED LIST changes: -ALBU8HFA IH; +AMLO-512 PO; +DSS100 PO; +LISI-662 PO; +OMEG-12 PO; +OMEP20 PO; -QUET300T2 PO
[2017-06-14 09:19] VITALS: BP 141/75
[2017-06-14] MEDS ORDERED: HALOPERIDOL 5 MG TABLET PO PRN (09:30)
[2017-06-14] MEDS ORDERED: INFLUENZA VIRUS VACCINE QVS 2017-18 (3YR+)/PF 60 MCG/0.5 ML SYRINGE IM ONE (10:45)
[2017-06-14 14:23] VITALS: BP 134/71
[2017-06-14 16:21] VITALS: BP 128/74
[2017-06-14] MEDS: RisperiDONE 3 MG TABLET PO SCH (17:06)
[2017-06-14 17:12] LABS: GLUCOSE,POINT OF CARE 81 MG/DL (70-110)
[2017-06-15 01:50] VITALS: BP 137/68
[2017-06-15 08:27] LABS: BASOPHILS # (AUTO) 0.05 K/uL (0.00-0.20); BASOPHILS % (AUTO) 0.8 % (0.0-2.0); EOSINOPHILS # (AUTO) 0.42 K/uL (0.00-0.70); EOSINOPHILS % (AUTO) 6.46 % (1.0-6.0); HEMATOCRIT 37.2 % (36-46); LYMPHOCYTES # (AUTO) 3.2 K/uL (1.0-4.8); LYMPHOCYTES % (AUTO) 48.8 % (22.0-44.0); MEAN CORPUSCULAR HEMOGLOBIN 27.6 pg (26.0-34.0); MEAN CORPUSCULAR HGB CONC 32.2 G/dL (31.0-37.0); MEAN CORPUSCULAR VOLUME 86 fL (80-100); MONOCYTES # (AUTO) 0.7 K/uL (0.1-1.0); MONOCYTES % (AUTO) 10.4 % (2.0-9.0); NEUTROPHILS # (AUTO) 2.2 K/uL (1.8-7.7); NEUTROPHILS % (AUTO) 33.5 % (40.0-70.0); PLATELET COUNT (AUTO) 289 K/uL (150-450); RED BLOOD CELL COUNT(AUTO) 4.34 MIL/uL (4.00-5.20); RED CELL DISTRIBUTION WIDTH 15.8 % (11.5-14.5); WHITE BLOOD COUNT (AUTO) 6.5 K/uL (4.5-11.0)
[2017-06-15 08:39] LABS: HEMOGLOBIN A1C 6.5 % (4.5-6.2)
[2017-06-15] MEDS ORDERED: BACITRACIN 28.4 GM OINTMENT TP PRN (09:00)
[2017-06-15] MEDS ORDERED: MAG HYDROX/AL HYDROX/SIMETH ES 30 ML SUSPENSION UDCUP PO PRN (09:00)
[2017-06-15] MEDS ORDERED: LOPERAMIDE HCL 2 MG CAPSULE PO PRN (09:00)
[2017-06-15] MEDS ORDERED: MAGNESIUM HYDROXIDE SUSPENSION 30 ML UDCUP PO PRN (09:00)
[2017-06-15] MEDS ORDERED: ONDANSETRON HCL 4 MG TABLET PO PRN (09:00)
[2017-06-15] MEDS ORDERED: CloNIDine HCL 0.1 MG TABLET PO PRN (09:00)
[2017-06-15] MEDS ORDERED: ALBUTEROL SULFATE HFA 90 MCG/PUFF 8 GM INHALER IH PRN (09:00)
[2017-06-15] MEDS ORDERED: BENZOCAINE/MENTHOL LOZENGE MM PRN (09:00)
[2017-06-15] MEDS ORDERED: PETROLATUM,WHITE 71 GM JELLY TP PRN (09:00)
[2017-06-15 09:02] LABS: ALANINE AMINOTRANSFERASE 19 U/L (12-78); ANION GAP 3 mmol/L (8-16); ASPARTATE AMINOTRANSFERASE 15 U/L (15-37); BILIRUBIN,TOTAL 0.7 mg/dL (0.1-1.0); CALCIUM, TOTAL 8.3 mg/dL (8.8-10.5); CARBON DIOXIDE 33 mmol/L (22-29); CHLORIDE 105 mmol/L (98-107); CHOL/HDL RATIO 4.1 (3.9-5.7); CREATININE 0.86 mg/dL (0.60-1.30); GLOMERULAR FILTR. RATE CALC > 60 mL/min (>60); POTASSIUM 3.8 mmol/L (3.5-5.1); SODIUM SERUM 141 mmol/L (136-145); THYROID STIMULATING HORMONE 0.29 uIU/mL (0.36-3.74); TOTAL PROTEIN, SERUM 6.5 g/dL (6.4-8.2); UREA NITROGEN, BLOOD 12 mg/dL (7-18)
[2017-06-15 09:14] VITALS: BP 122/71
[2017-06-15] MEDS: RisperiDONE 3 MG TABLET PO SCH ×2 (09:21→16:45)
[2017-06-15] MEDS: NICOTINE 14 MG/24 HOUR PATCH TD SCH (09:23)
[2017-06-15] MEDS: DOCUSATE SODIUM 100 MG CAPSULE PO SCH (09:23)
[2017-06-15] MEDS: OMEPRAZOLE 20 MG CAPSULE PO SCH (09:23)
[2017-06-15 16:07] VITALS: BP 136/71
[2017-06-16 06:42] VITALS: BP 135/89
[2017-06-16] MEDS: RisperiDONE 3 MG TABLET PO SCH ×2 (08:03→16:12)
[2017-06-16] MEDS: DOCUSATE SODIUM 100 MG CAPSULE PO SCH (08:03)
[2017-06-16] MEDS: OMEPRAZOLE 20 MG CAPSULE PO SCH (08:03)
[2017-06-16] MEDS: NICOTINE 14 MG/24 HOUR PATCH TD SCH (08:04)
[2017-06-16 08:40] VITALS: BP 126/67
[2017-06-16 16:08] VITALS: BP 139/76
[2017-06-17 01:08] VITALS: BP 140/87
[2017-06-17] MEDS: ZOLPIDEM TARTRATE 10 MG TABLET PO PRN (01:09)
[2017-06-17 08:30] VITALS: BP 133/60
[2017-06-17] MEDS: DOCUSATE SODIUM 100 MG CAPSULE PO SCH (08:44)
[2017-06-17] MEDS: OMEPRAZOLE 20 MG CAPSULE PO SCH (08:44)
[2017-06-17] MEDS: NICOTINE 14 MG/24 HOUR PATCH TD SCH (08:44)
[2017-06-17] MEDS: RisperiDONE 3 MG TABLET PO SCH ×2 (08:44→16:49)
[2017-06-17 16:24] VITALS: BP 112/69
[2017-06-18 00:35] VITALS: BP 118/69
[2017-06-18 08:09] VITALS: BP 147/71
[2017-06-18] MEDS: OMEPRAZOLE 20 MG CAPSULE PO SCH (09:00)
[2017-06-18] MEDS: RisperiDONE 3 MG TABLET PO SCH ×2 (09:00→16:34)
[2017-06-18] MEDS: DOCUSATE SODIUM 100 MG CAPSULE PO SCH (09:00)
[2017-06-18] MEDS: NICOTINE 14 MG/24 HOUR PATCH TD SCH (09:01)
[2017-06-18 16:29] VITALS: BP 137/60
[2017-06-19 04:20] VITALS: BP 140/76
[2017-06-19] MEDS: LORazepam 2 MG TABLET PO PRN (04:25)
[2017-06-19 08:07] VITALS: BP 140/72
[2017-06-19] MEDS: OMEPRAZOLE 20 MG CAPSULE PO SCH (08:53)
[2017-06-19] MEDS: DOCUSATE SODIUM 100 MG CAPSULE PO SCH (08:53)
[2017-06-19] MEDS: RisperiDONE 3 MG TABLET PO SCH ×2 (08:53→16:35)
[2017-06-19] MEDS: NICOTINE 14 MG/24 HOUR PATCH TD SCH (08:59)
[2017-06-19 16:08] VITALS: BP 133/85
[2017-06-19] MEDS: ZOLPIDEM TARTRATE 10 MG TABLET PO PRN (22:36)
[2017-06-20 04:44] VITALS: BP 111/64
[2017-06-20 08:44] VITALS: BP 120/60
[2017-06-20] MEDS: OMEPRAZOLE 20 MG CAPSULE PO SCH (08:52)
[2017-06-20] MEDS: RisperiDONE 3 MG TABLET PO SCH ×2 (08:52→16:37)
[2017-06-20] MEDS: DOCUSATE SODIUM 100 MG CAPSULE PO SCH (08:52)
[2017-06-20] MEDS: NICOTINE 14 MG/24 HOUR PATCH TD SCH (09:00)
[2017-06-20 16:23] VITALS: BP 140/72
[2017-06-20] MEDS: GuaiFENesin/D-METHORPHAN [SUGAR-FREE] 200-20MG/10 ML SYRUP UDCUP PO PRN (16:37)
[2017-06-21 00:02] VITALS: BP 128/70
[2017-06-21] MEDS: ZOLPIDEM TARTRATE 10 MG TABLET PO PRN (00:03)
[2017-06-21] MEDS: GuaiFENesin/D-METHORPHAN [SUGAR-FREE] 200-20MG/10 ML SYRUP UDCUP PO PRN ×3 (05:56→16:24)
[2017-06-21 08:22] VITALS: BP 122/56
[2017-06-21] MEDS: OMEPRAZOLE 20 MG CAPSULE PO SCH (09:03)
[2017-06-21] MEDS: DOCUSATE SODIUM 100 MG CAPSULE PO SCH (09:03)
[2017-06-21] MEDS: RisperiDONE 3 MG TABLET PO SCH ×2 (09:04→16:24)
[2017-06-21] MEDS: NICOTINE 14 MG/24 HOUR PATCH TD SCH (09:10)
[2017-06-21 16:17] VITALS: BP 125/67
[2017-06-22 03:01] VITALS: BP 136/82
[2017-06-22] MEDS: ZOLPIDEM TARTRATE 10 MG TABLET PO PRN (03:04)
[2017-06-22] MEDS: GuaiFENesin/D-METHORPHAN [SUGAR-FREE] 200-20MG/10 ML SYRUP UDCUP PO PRN ×3 (06:53→16:10)
[2017-06-22] MEDS: DOCUSATE SODIUM 100 MG CAPSULE PO SCH (08:12)
[2017-06-22] MEDS: OMEPRAZOLE 20 MG CAPSULE PO SCH (08:12)
[2017-06-22] MEDS: RisperiDONE 3 MG TABLET PO SCH ×2 (08:13→16:38)
[2017-06-22] MEDS: NICOTINE 14 MG/24 HOUR PATCH TD SCH (08:13)
[2017-06-22 08:31] VITALS: BP 124/70
[2017-06-22 16:00] VITALS: BP 127/64
[2017-06-22 16:10] VITALS: BP 124/64
[2017-06-22] MEDS: ACETAMINOPHEN 325 MG TABLET PO PRN (16:10)
[2017-06-22 16:38] VITALS: BP 124/64
[2017-06-23 05:06] VITALS: BP 130/80
[2017-06-23] MEDS: GuaiFENesin/D-METHORPHAN [SUGAR-FREE] 200-20MG/10 ML SYRUP UDCUP PO PRN ×3 (05:07→14:20)
[2017-06-23 08:18] VITALS: BP 136/73
[2017-06-23] MEDS: DOCUSATE SODIUM 100 MG CAPSULE PO SCH (08:43)
[2017-06-23] MEDS: RisperiDONE 3 MG TABLET PO SCH ×2 (08:43→16:36)
[2017-06-23] MEDS: OMEPRAZOLE 20 MG CAPSULE PO SCH (08:43)
[2017-06-23] MEDS: NICOTINE 14 MG/24 HOUR PATCH TD SCH (08:44)
[2017-06-23 16:03] VITALS: BP 132/80
[2017-06-23] MEDS: IBUPROFEN 600 MG TABLET PO PRN (16:05)
[2017-06-24 00:07] VITALS: BP 138/64
[2017-06-24 05:17] VITALS: BP 135/73
[2017-06-24] MEDS: IBUPROFEN 600 MG TABLET PO PRN ×2 (05:23→16:04)
[2017-06-24 08:27] VITALS: BP 126/71
[2017-06-24] MEDS: OMEPRAZOLE 20 MG CAPSULE PO SCH (09:10)
[2017-06-24] MEDS: NICOTINE 14 MG/24 HOUR PATCH TD SCH (09:11)
[2017-06-24] MEDS: RisperiDONE 3 MG TABLET PO SCH ×2 (09:11→16:04)
[2017-06-24] MEDS: DOCUSATE SODIUM 100 MG CAPSULE PO SCH (09:11)
[2017-06-24] MEDS: GuaiFENesin/D-METHORPHAN [SUGAR-FREE] 200-20MG/10 ML SYRUP UDCUP PO PRN (15:16)
[2017-06-24 16:04] VITALS: BP 133/78
[2017-06-24 16:07] VITALS: BP 133/78
[2017-06-25 00:09] VITALS: BP 130/66
[2017-06-25 06:24] VITALS: BP 122/76
[2017-06-25] MEDS: ACETAMINOPHEN 325 MG TABLET PO PRN (06:37)
[2017-06-25] MEDS: GuaiFENesin/D-METHORPHAN [SUGAR-FREE] 200-20MG/10 ML SYRUP UDCUP PO PRN (07:07)
[2017-06-25] MEDS: OMEPRAZOLE 20 MG CAPSULE PO SCH (08:15)
[2017-06-25] MEDS: DOCUSATE SODIUM 100 MG CAPSULE PO SCH (08:15)
[2017-06-25] MEDS: RisperiDONE 3 MG TABLET PO SCH ×2 (08:15→17:11)
[2017-06-25] MEDS: CHOLECALCIFEROL (VIT D3) 1,000 UNITS TABLET PO SCH (08:15)
[2017-06-25] MEDS: NICOTINE 14 MG/24 HOUR PATCH TD SCH (08:16)
[2017-06-25 08:31] VITALS: BP_SYST 127
[2017-06-25 16:07] VITALS: BP 122/72
[2017-06-26] MEDS: GuaiFENesin/D-METHORPHAN [SUGAR-FREE] 200-20MG/10 ML SYRUP UDCUP PO PRN ×2 (01:34→16:17)
[2017-06-26 06:12] VITALS: BP 117/75
[2017-06-26] MEDS: CHOLECALCIFEROL (VIT D3) 1,000 UNITS TABLET PO SCH (08:15)
[2017-06-26] MEDS: DOCUSATE SODIUM 100 MG CAPSULE PO SCH (08:15)
[2017-06-26] MEDS: RisperiDONE 3 MG TABLET PO SCH ×2 (08:15→16:18)
[2017-06-26] MEDS: OMEPRAZOLE 20 MG CAPSULE PO SCH (08:15)
[2017-06-26] MEDS: NICOTINE 14 MG/24 HOUR PATCH TD SCH (08:15)
[2017-06-26 08:25] VITALS: BP 126/66
[2017-06-26] MEDS: ACETAMINOPHEN 325 MG TABLET PO PRN ×2 (08:26→16:43)
[2017-06-26 16:13] VITALS: BP 119/70
[2017-06-26 17:43] VITALS: BP 118/75
[2017-06-26] MEDS: ZOLPIDEM TARTRATE 10 MG TABLET PO PRN (21:34)
[2017-06-27 00:18] VITALS: BP 137/64
[2017-06-27] MEDS: DOCUSATE SODIUM 100 MG CAPSULE PO SCH (08:15)
[2017-06-27] MEDS: CHOLECALCIFEROL (VIT D3) 1,000 UNITS TABLET PO SCH (08:15)
[2017-06-27] MEDS: RisperiDONE 3 MG TABLET PO SCH ×2 (08:15→16:34)
[2017-06-27] MEDS: OMEPRAZOLE 20 MG CAPSULE PO SCH (08:15)
[2017-06-27] MEDS: NICOTINE 14 MG/24 HOUR PATCH TD SCH (08:15)
[2017-06-27 08:20] VITALS: BP 113/69
[2017-06-27] MEDS: ACETAMINOPHEN 325 MG TABLET PO PRN (13:13)
[2017-06-27] MEDS: GuaiFENesin/D-METHORPHAN [SUGAR-FREE] 200-20MG/10 ML SYRUP UDCUP PO PRN (13:13)
[2017-06-27 16:20] VITALS: BP 122/77
[2017-06-27] MEDS: IBUPROFEN 600 MG TABLET PO PRN (16:20)
[2017-06-28 02:42] VITALS: BP 112/66
[2017-06-28] MEDS: ZOLPIDEM TARTRATE 10 MG TABLET PO PRN ×2 (02:46→21:38)
[2017-06-28] MEDS: DOCUSATE SODIUM 100 MG CAPSULE PO SCH (08:31)
[2017-06-28] MEDS: CHOLECALCIFEROL (VIT D3) 1,000 UNITS TABLET PO SCH (08:31)
[2017-06-28] MEDS: NICOTINE 14 MG/24 HOUR PATCH TD SCH (08:31)
[2017-06-28] MEDS: OMEPRAZOLE 20 MG CAPSULE PO SCH (08:31)
[2017-06-28] MEDS: RisperiDONE 3 MG TABLET PO SCH ×2 (08:31→16:08)
[2017-06-28] MEDS: GuaiFENesin/D-METHORPHAN [SUGAR-FREE] 200-20MG/10 ML SYRUP UDCUP PO PRN ×2 (08:37→14:29)
[2017-06-28 08:42] VITALS: BP 118/70
[2017-06-28] MEDS: ACETAMINOPHEN 325 MG TABLET PO PRN (14:29)
[2017-06-28 16:12] VITALS: BP 114/69
[2017-06-29 01:51] VITALS: BP 123/65
[2017-06-29] MEDS: LORazepam 2 MG TABLET PO PRN (01:57)
[2017-06-29 08:15] VITALS: BP 122/62
[2017-06-29] MEDS: OMEPRAZOLE 20 MG CAPSULE PO SCH (08:37)
[2017-06-29] MEDS: CHOLECALCIFEROL (VIT D3) 1,000 UNITS TABLET PO SCH (08:37)
[2017-06-29] MEDS: RisperiDONE 3 MG TABLET PO SCH ×2 (08:37→16:02)
[2017-06-29] MEDS: DOCUSATE SODIUM 100 MG CAPSULE PO SCH (08:37)
[2017-06-29] MEDS: GuaiFENesin/D-METHORPHAN [SUGAR-FREE] 200-20MG/10 ML SYRUP UDCUP PO PRN ×2 (08:47→16:02)
[2017-06-29] MEDS: NICOTINE 14 MG/24 HOUR PATCH TD SCH (08:47)
[2017-06-29] MEDS: ACETAMINOPHEN 325 MG TABLET PO PRN (15:27)
[2017-06-29 16:22] VITALS: BP_SYST 118; BP_SYST 137; BP_DIAS 71; BP_DIAS 78
[2017-06-30 02:59] VITALS: BP 120/82
[2017-06-30 08:31] VITALS: BP 122/79
[2017-06-30] MEDS: DOCUSATE SODIUM 100 MG CAPSULE PO SCH (08:33)
[2017-06-30] MEDS: RisperiDONE 3 MG TABLET PO SCH ×2 (08:33→16:55)
[2017-06-30] MEDS: NICOTINE 14 MG/24 HOUR PATCH TD SCH (08:34)
[2017-06-30] MEDS: CHOLECALCIFEROL (VIT D3) 1,000 UNITS TABLET PO SCH (08:34)
[2017-06-30] MEDS: OMEPRAZOLE 20 MG CAPSULE PO SCH (08:34)
[2017-06-30 10:19] VITALS: BP 118/80
[2017-06-30] MEDS: GuaiFENesin/D-METHORPHAN [SUGAR-FREE] 200-20MG/10 ML SYRUP UDCUP PO PRN (10:19)
[2017-06-30] MEDS: ACETAMINOPHEN 325 MG TABLET PO PRN (10:19)
[2017-06-30 16:26] VITALS: BP 120/69
[2017-06-30] MEDS ORDERED: ZOLPIDEM TARTRATE 10 MG TABLET PO PRN (22:15)
[2017-07-01 00:10] VITALS: BP 129/76
[2017-07-01] MEDS: OMEPRAZOLE 20 MG CAPSULE PO SCH (08:16)
[2017-07-01] MEDS: DOCUSATE SODIUM 100 MG CAPSULE PO SCH (08:16)
[2017-07-01] MEDS: RisperiDONE 3 MG TABLET PO SCH (08:17)
[2017-07-01] MEDS: CHOLECALCIFEROL (VIT D3) 1,000 UNITS TABLET PO SCH (08:17)
[2017-07-01] MEDS: NICOTINE 14 MG/24 HOUR PATCH TD SCH (08:23)
[2017-07-01 09:14] VITALS: BP 119/69
[2017-07-01] MEDS: ACETAMINOPHEN 325 MG TABLET PO PRN (09:51)
[2017-07-01] MEDS: GuaiFENesin/D-METHORPHAN [SUGAR-FREE] 200-20MG/10 ML SYRUP UDCUP PO PRN (09:51)
[2017-07-01] MEDS ORDERED: CHOL100034 PO (11:23)
== END 2017-07-01 13:20 | disposition home or self-care (01) | DRG 885 ==
LOC: B3A 11:39 → EDSTATUS 12:17 → B2X 13:15
PROVIDERS: ADMIT Psychiatry & Neurology Psychiatry; ATTEND Psychiatry & Neurology Psychiatry
PROC: 3E0234Z Introduction of Serum, Toxoid and Vaccine into Muscle, Percutaneous Approach (ICD-10-PCS; principal; 2017-06-14)
DX: F25.9 Schizoaffective disorder, unspecified (principal); R45.851 Suicidal ideations; E83.51 Hypocalcemia; F23 Brief psychotic disorder; E66.9 Obesity, unspecified; K59.00 Constipation, unspecified; K21.9 Gastro-esophageal reflux disease without esophagitis; F19.10 Other psychoactive substance abuse, uncomplicated; F17.210 Nicotine dependence, cigarettes, uncomplicated; F15.10 Other stimulant abuse, uncomplicated; J44.9 Chronic obstructive pulmonary disease, unspecified; M54.5 Low back pain; Z59.0 Homelessness; Z71.6 Tobacco abuse counseling; Z68.38 Body mass index [BMI] 38.0-38.9, adult; Z88.0 Allergy status to penicillin; Z79.899 Other long term (current) drug therapy; Z23 Encounter for immunization
CPT/HCPCS: 82306; 82962; 83036; 84439; 84443; 90471; J3535